=== PATIENT | male | born 1940 | race Caucasian/White ===

== ENCOUNTER 2023-07-01 09:31 | Outpatient (OUT) | payer MEDICARE, SELFPAY ==
--- NOTE | 2023-07-01 | XR_ITS ---
[address] [address] Patient Name: JUAN ZELAYA MRN: [id number] date: 1940 Sex: M Assigned Patient Location: [facility] Current Patient Location: [facility] Accession/Order Number: [id number] Exam Date: 07/01/2023 09:39 Report Date: 07/01/2023 11:45 At the request of: LELAND RICHARDSON Procedure: XR ankle RT min 3V PROCEDURE: XR ankle RT min 3V, XR foot RT min 3V COMPARISON: 06/18/2022. HISTORY: RIGHT ANKLE PAIN FINDINGS: BONES:No acute fracture or dislocation. Stable talus arthroplasty. Stable replacement of the tibial plafond and. Single cannulated lag screw through the medial malleolus. No acute fracture, dislocation or mechanical failure. Underlying degenerative changes. Enthesopathic spurring plantar calcaneus. 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 No visible soft tissue swelling. EFFUSION:None visible. OTHER: Negative. XR/XR ankle RT min 3V IMPRESSION: Stable postsurgical and degenerative changes Electronically authenticated by: JAG CANTOR Date: 07/01/2023 11:45
--- NOTE | 2023-07-01 | XR_ITS ---
[address] [address] Patient Name: JUAN ZELAYA MRN: [id number] date: 1940 Sex: M Assigned Patient Location: [facility] Current Patient Location: [facility] Accession/Order Number: [id number] Exam Date: 07/01/2023 09:39 Report Date: 07/01/2023 11:45 At the request of: LELAND RICHARDSON Procedure: XR foot RT min 3V PROCEDURE: XR ankle RT min 3V, XR foot RT min 3V COMPARISON: 06/18/2022. HISTORY: RIGHT ANKLE PAIN FINDINGS: BONES:No acute fracture or dislocation. Stable talus arthroplasty. Stable replacement of the tibial plafond and. Single cannulated lag screw through the medial malleolus. No acute fracture, dislocation or mechanical failure. Underlying degenerative changes. Enthesopathic spurring plantar calcaneus. 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 No visible soft tissue swelling. EFFUSION:None visible. OTHER: Negative. XR/XR foot RT min 3V IMPRESSION: Stable postsurgical and degenerative changes Electronically authenticated by: JAG CANTOR Date: 07/01/2023 11:45
== END 2023-07-01 09:32 | disposition home or self-care (01) ==
PROVIDERS: Visit Provider Podiatrist Foot & Ankle Surgery
DX: M25.571 Pain in right ankle and joints of right foot (principal)
CPT/HCPCS: 73610; 73630

== ENCOUNTER 2023-12-10 08:45 | Outpatient (OUT) | payer MEDICARE, SELFPAY ==
--- NOTE | 2023-12-10 09:45 | P.GSHP_ITS ---
History of Present Illness History of Present Illness Chief complaint: giuseppeertoe right 4th and 5th Narrative: Patient presents for preadmission testing. Please see HPI from Dr. Baxter dated 11/24/2023. Review of Systems ROS Narrative Please see ROS from Dr. Baxter dated 11/24/2023. [facility] Medical History (Updated 12/10/23 @ 09:48 by Alexandria Pineda NP) Hallux rigidus ?M20.20 - Hallux rigidus, unspecified foot (ICD-10) Other specified disorders of bone, ankle and foot ?M89.8X7 - Other specified disorders of bone, ankle and foot (ICD-10) Acquired hammer toe ?M20.40 - Other hammer toe(s) (acquired), unspecified foot (ICD-10) Corns and callosities ?L84 - Corns and callosities (ICD-10) Dyspnea on exertion ?R06.09 - Other forms of dyspnea (ICD-10) COVID-19 ?U07.1 - COVID-19 (ICD-10) Environmental allergies ?Z91.09 - Other allergy status, other than to drugs and biological substances (ICD-10) Bronchospasm ?J98.01 - Acute bronchospasm (ICD-10) Heartburn ?R12 - Heartburn (ICD-10) Hypertension ?I10 - Essential (primary) hypertension (ICD-10) Hydrocele ?N43.3 - Hydrocele, unspecified (ICD-10) Surgical History (Updated 12/10/23 @ 09:48 by Alexandria Pineda NP) History of hydrocelectomy ?Z98.890 - Other specified postprocedural states (ICD-10) History of colonoscopy ?Z98.890 - Other specified postprocedural states (ICD-10) History of appendectomy ?Z90.49 - Acquired absence of other specified parts of digestive tract (ICD- 10) History of repair of rotator cuff ?Z98.890 - Other specified postprocedural states (ICD-10) History of arthroplasty of knee ?Z96.659 - Presence of unspecified artificial knee joint (ICD-10) History of ankle surgery ?Z98.890 - Other specified postprocedural states (ICD-10) Family History (Updated 12/10/23 @ 09:42 by Alexandria Pineda, DESIGN EDITOR) Other Family history of colon cancer Family history of diabetes mellitus Family history of heart disease Family history of renal failure Social History (Updated 12/10/23 @ 09:09 by Alexandria Pineda NP) Within the past year, how often did you have a drink containing alcohol: 4 or more times a week Within the past year, how many standard drinks containing alcohol did you have on a typical day: 1 or 2 Total score: 0 Score interpretation: A score less than 4 is consistent with normal alcohol consumption. Smoking status: Former smoker Non-prescribed substance use: denies use Highest level of school completed/degree received: high school graduate Meds Home Medications and Allergies Home Medications ?Medication ?Instructions ?Recorded ?Confirmed ?Type albuterol sulfate 90 mcg/actuation 2 inh inhalation Q6H PRN shortness 12/10/23 12/10/23 History aerosol inhaler of breath or wheezing coenzyme Q10 30 mg capsule (Co 30 mg PO DAILY 12/10/23 12/10/23 History Q-10) meloxicam 15 mg tablet 15 mg PO DAILY PRN pain 12/10/23 12/10/23 History simvastatin 20 mg tablet 20 mg PO DAILY 12/10/23 12/10/23 History turmeric 400 mg capsule mg PO 12/10/23 History Allergies Allergy/AdvReac Type Severity Reaction Status Date / Time Sulfa (Sulfonamide Allergy Confusion Verified 12/10/23 09:06 Antibiotics) Exam Narrative Exam Narrative: Constitutional: Very pleasant, appears much younger than stated age, awake, alert, comfortable, well-appearing, nontoxic, interactive, vital signs as charted Head: Normocephalic, atraumatic Neck: Supple, normal appearance, normal range of motion, no meningeal signs, no lymphadenopathy Respiratory: No respiratory distress, breath sounds clear Cardiovascular: Regular rate and rhythm, strong and regular heart tones Skin: No rashes or induration, no lesions, only visible skin inspected Neuro: No neurological deficits, normal sensation Psychiatric: Oriented ?3, normal affect Assessment and Plan Assessment and Plan (1) Corns and callosities: (2) Acquired hammer toe: (3) Other specified disorders of bone, ankle and foot: (4) Hallux rigidus: Plan Right 5th hammertoe correction with ostectomy of 4th and 5th toes scheduled with Dr. Baxter 12/24/2023.
== END 2023-12-10 08:46 | disposition home or self-care (01) ==
PROVIDERS: PCP Internal Medicine Nephrology; Visit Provider Podiatrist Foot & Ankle Surgery
DX: Z01.818 Encounter for other preprocedural examination (principal); M20.41 Other hammer toe(s) (acquired), right foot; M89.8X7 Other specified disorders of bone, ankle and foot
CPT/HCPCS: G0463

== ENCOUNTER 2023-12-24 06:29 | Day surgery (SDC) | payer MEDICARE, SELFPAY ==
[2023-12-10 09:42] VITALS: BP 142/88; PULSE 67; TEMP 36.3; O2SAT 97; BMI 31.4
[2023-12-24] VITALS (11 sets, daily range): BP systolic 130–176; BP diastolic 79–99; PULSE 59–82; TEMP 36.2–36.3; O2SAT 67–98
--- OUTSIDE RECORDS SUMMARY | 2023-12-24 06:31 | XMS_ITS | CCD ---
Author Organization [facility] Care Team Providers Care Patch Washer Name Role Phone Rebekah Benítez Primary Care Provider LELAND RICHARDSON Admitting Unavailable LELAND RICHARDSON Attending Unavailable NOHELIA, DR FREDI Rodrgiuez Consulting Unavailable LELAND RICHARDSON Consulting Unavailable LELAND RICHARDSON Admitting Unavailable LELAND RICHARDSON Attending Unavailable DEVAUGHN, DR JAG Ruiz Consulting Unavailable LELAND RICHARDSON Consulting Unavailable Jackelin FULLER, Rebekah Bauman Primary Care Provider Rebekah Benítez DO Primary Care Provider [phone] Jackelin FULLER, Rebekah Bauman Primary Care Provider Alphonso ROBB, Jaden Pierson Attending Unavailab le Jackelin DO, Rebekah Lr Primary Care Bharati Werner MD, Jaden Pierson Attending Unavailab le Jackelin DO, Rebekah Lr [facility] Care REBEKAH Ribeiro Primary Care Unavailable JACKELIN, REBEKAH Bauman Referring Unavailable JACKELIN, REBEKAH Bauman Referring Unavailable JACKELIN, REBEKAH Bauman Primary Care Unavailable JACKELINREBEKAH CRANDALL Referring Unavailable NHI BARTHOLOMEW Primary Care Unavailable FREDI MOE Referring Unavailable JACKELIN, REBEKAH Bauman Primary Care Unavailable FREDI MOE Attending Unavailable JACKELIN, REBEKAH Bauman Primary Care Unavailable FREDI MOE Attending Unavailable FREDI MOE Referring Unavailable FREDI MOE Attending Unavailable JACKELIN, REBEKAH Bauman Primary Care Unavailable FREDI MOE Referring Unavailable JACKELIN, REBEKAH Bauman Primary Care Unavailable JACKELIN, REBEKAH Bauman Referring Unavailable FREDI MOE Attending Unavailable JACKELIN, REBEKAH F Primary Care Unavailable FREDI MOE Referring Unavailable JACKELIN, REBEKAH Bauman Referring Unavailable JACKELIN, REBEKAH Bauman Primary Care Unavailable JACKELIN, REBEKAH F Primary Care Unavailable FREDI MOE Attending Unavailable FREDI MOE Referring Unavailable Allergies Allergy Classification Reported Allergen(s) Allergy Type Date of Onset Reaction(s) Facility (6 sources) Sulfonamides (Antibiotic) Propensity to adverse reactions to drug 01-06-20 13 Other (See Comments) [place] (1 source) Sulfonamides (Antibiotic) Drug allergy (disorder) [facility] (3 sources) Sulfonamides (Antibiotic) Propensity to adverse reactions to drug 01-06-20 13 [facility] (See Comments[facility] Sulfamethoxazole / Trimethoprim; Translations: [Bactrim] Drug Allergy [facility]ository Medications Current Medications Medication Drug Class(es) Dates Sig (Normalized) Sig (Original) lutein 2.5 mg / omega-3 acid ethyl esters ([facility]) 250 mg / zeaxanthin 0.5 mg oral capsule (9 sources) [place] 7-Wzfkfz-Znjcymfegv 250-2.5-0.5 MG CAPS Take by mouth daily. 0 Active meloxicam 15 mg oral tablet (1 source) Nonsteroidal Anti-inflammatory Drug take 1 tablet by mouth once daily meloxicam (MOBIC) 15 MG tablet Take 1 tablet by mouth daily 0 Active omeprazole 20 mg delayed release oral capsule (9 sources) Proton Pump Inhibitor take 1 capsule by mouth once daily omeprazole (PRILOSEC) 20 MG capsule Take 20 mg by mouth nightly. 0 Active simvastatin 20 mg oral tablet (9 sources) HMG-CoA Reductase Inhibitor simvastatin (ZOCOR) 20 MG tablet Take 1 tablet by mouth nightly Pt takes every other day. 0 Active Completed/Discontinued Medications Medication Drug Class(es) Dates Sig (Normalized) Sig (Original) technetium sestamibi (CARDIOLITE) injection 30 millicurie (1 source) Start: 08-20-2023 End: 08-20-2023 technetium sestamibi (CARDIOLITE) injection 30 millicurie Problems Active Problems Problem Classification Problem Date Documented Date Episodic/Chronic Acquired foot deformities (1 source) Varus deformity, not elsewhere classified, right ankle; Translations: [VARUS DEFORMITY NEC RIGHT ANKLE] Onset: 06-22-2022 Episodic Diabetes mellitus without complication (2 sources) Hyperglycemia, unspecified; Translations: [Hyperglycemia, unspecified] Onset: 11-30-2023 Episodic Disorders of lipid metabolism (2 sources) Hyperlipidemia, unspecified; Translations: [Hyperlipidemia, unspecified] Onset: 02-03-2023 Chronic Diverticulosis and diverticulitis (9 sources) Diverticulosis of sigmoid colon; Translations: [Diverticulosis of large intestine without perforation or abscess without bleeding] Onset: 12-14-2013 Chronic Osteoarthritis (4 sources) Primary osteoarthritis, right ankle and foot; Translations: [PRIMARY OSTEOARTHRITIS RT ANK FOOT] Onset: 06-18-2022 Chronic Past or Other Problems Problem Classification Problem Date Documented Da te Episodic/Chronic Acute bronchitis (3 sources) Acute bronchitis, unspecified; Translations: [Acute bronchitis, unspecified] Onset: 06-24-2023 Episodic Other connective tissue disease (1 source) Other specified soft tissue disorders; Translations: [Other specified soft tissue disorders] Onset: 08-19-2023 Episodic Other lower respiratory disease (1 source) Shortness of breath; Translations: [Shortness of breath] Onset: 08-19-2023 Episodic Other non-traumatic joint disorders (4 sources) Pain in right ankle and joints of right foot; Translations: [PAIN IN RIGHT ANKLE] Onset: 10-10-2021 Episodic Other screening for suspected conditions (not mental disorders or infectious disease) (8 sources) Patient encounter status; Translations: [Encounter for screening for malignant neoplasm of colon] Onset: 11-28-2013 Resolved: 06-28-2018 06-28-2018 Episodic Unclassified (3 sources) Patient encounter status; Translations: [Encounter for screening colonoscopy] Onset: 11-28-2013 Resolved: 06-28-2018 06-28-2018 Results Test Name Value Interpretation Reference Range Facility Hemoglobin A1Con 12-01-2023 Glucose [Mass/Vol] 114 mg/dL Normal [facility] Comment on above: Result Comment: The ADA and AACC recommend providing the estimated average glucose result to permit better patient understanding of their HBA1c result. Performed By: #### L IPR, GLYHGB #### [facility] [employer] [address] [place] [address] Assistant Sales Manager: Trev Esparza MD #### CP #### [facility] [address] [place] [address] Assistant Sales Manager: Jag Martinez MD HbA1c (Bld) [Mass fraction] 5.6 % Normal 4.0-6.0 [facility] Comment on above: Performed By: #### L IPR, GLYHGB #### [address] [address] Assistant Sales Manager: Trev Esparza MD #### CP #### [facility] [address] [place] [address] Dr. [place], [place] [phone] Assistant Sales Manager: Jag Martinez MD Lipid Profileon 12-01-2023 Cholesterol [Mass/Vol] 168 mg/dL Normal 0-199 [facility] Comment on above: Result Comment: Cholesterol Guidelines: <200 Desirable 200-240 Borderline >240 Undesirable Performed By: #### L IPR, GLYHGB #### [address] [address] Assistant Sales Manager: Trev Esparza MD #### CP #### [address] [place] [address] Assistant Sales Manager: Jag Martinez MD Cholesterol in HDL [Mass/Vol] 50 mg/dL Normal >40 [facility] Comment on above: Result Comment: HDL Guidelines: <40 Undesirable 40-59 Borderline >59 Desirable Performed By: #### L IPR, GLYHGB #### [address] [address] Assistant Sales Manager: Trev Esparza MD #### CP #### [address] [place], [place] [phone] Assistant Sales Manager: Jag Martinez MD Cholesterol in LDL [Mass/Vol] 101 mg/dL High 0-100 [facility] Comment on above: Result Comment: LDL Guidelines: <100 Desirable 100-129 Near to/above Desirable 130-159 Borderline >159 Undesirable Direct (measured) LDL and calculated LDL are not interchangeable tests. Performed By: #### L IPR, GLYHGB #### [address] [address] Assistant Sales Manager: Trev Esparza MD #### CP #### [facility] [address] [place] [address] Dr. [place], [place] [phone] Assistant Sales Manager: Jag Martinez MD Cholesterol in VLDL [Mass/Vol] 17 mg/dL Normal [facility] Comment on above: Performed By: #### L IPR, GLYHGB #### [facility] [address] [place] [address] Assistant Sales Manager: Trev Esparza MD #### CP #### [address] [place], [place] [phone] Assistant Sales Manager: Jag Martinez MD Cholesterol.total/Cho lesterol in HDL [Mass ratio] 3.0 {ratio} Normal [facility] Comment on above: Performed By: #### L IPR, GLYHGB #### [address] [address] Assistant Sales Manager: Trev Esparza MD #### CP #### [address] [place] [address] Assistant Sales Manager: Jag Martinez MD Triglyceride [Mass/Vol] 85 mg/dL Normal <150 [facility] Comment on above: Result Comment: Triglyceride Guidelines: <150 Desirable 150-199 Borderline 200-499 High >499 Very high Based on AHA Guidelines for fasting triglyceride, May 2012. Performed By: #### L IPR, GLYHGB #### [address] [place] [address] Assistant Sales Manager: Trev Esparza MD #### CP #### [address] [place], [place] [phone] Assistant Sales Manager: Jag Martinez MD Comp Metabolic Profon 2023 Albumin [Mass/Vol] 4.1 g/dL Normal 3.5-5.2 [facility] Comment on above: Performed By: #### L IPR, GLYHGB #### [address] [place] [address] Assistant Sales Manager: Trev Esparza MD #### CP #### [facility] [address] [place], [place] [phone] Assistant Sales Manager: Jag Martinez MD Albumin/Glob Ratio 1.6 Normal 1.0-2.5 [facility] Comment on above: Performed By: #### L IPR, GLYHGB #### [address] [place] [address] Assistant Sales Manager: Trev Esparza MD #### CP #### [address] [place], [place] [phone] Assistant Sales Manager: Jag Martinez MD Alkaline Phos 50 U/L Normal 40-129 [facility] Comment on above: Performed By: #### L IPR, GLYHGB #### [address] [address] Assistant Sales Manager: Trev Esparza MD #### CP #### [address] [place], [place] [phone] Assistant Sales Manager: Jag Martinez MD ALT [Catalytic activity/Vol] 20 U/L Normal 5-41 [facility] Comment on above: Performed By: #### L IPR, GLYHGB #### [address] [address] Assistant Sales Manager: Trev Esparza MD #### CP #### [address] [place], [place] [phone] Assistant Sales Manager: Jag Martinez MD Anion gap [Moles/Vol] 8 mmol/L Low 9-17 [facility] Comment on above: Performed By: #### L IPR, GLYHGB #### [address] [address] Assistant Sales Manager: Trev Esparza MD #### CP #### [address] [place], [place] [phone] Assistant Sales Manager: Jag Martinez MD AST [Catalytic activity/Vol] 20 U/L Normal <40 [facility] Comment on above: Performed By: #### L IPR, GLYHGB #### [facility] [address] [place] [address] Assistant Sales Manager: Trev Esparza MD #### CP #### [facility] [address] [place], [place] [phone] Assistant Sales Manager: Jag Martinez MD Bilirubin [Mass/Vol] 0.5 mg/dL Normal 0.3-1.2 [facility] Comment on above: Performed By: #### L IPR, GLYHGB #### [address] [address] Assistant Sales Manager: Trev Esparza MD #### CP #### [facility] [address] [place] [phone] Assistant Sales Manager: Jag Martinez MD BUN/CRE Ratio 23 High 9-20 [facility] Comment on above: Performed By: #### L IPR, GLYHGB #### [address] [address] Assistant Sales Manager: Trev Esparza MD #### CP #### [facility] [address] [place] [address] Dr. [place], [place] [phone] Assistant Sales Manager: Jag Martinez MD Calcium [Mass/Vol] 9.2 mg/dL Normal 8.6-10.4 [facility] Comment on above: Performed By: #### L IPR, GLYHGB #### [address] [address] Assistant Sales Manager: Trev Esparza MD #### CP #### [facility] [address] [place], [place] [phone] Assistant Sales Manager: Jag Martinez MD Chloride [Moles/Vol] 107 mmol/L Normal 98-107 [facility] Comment on above: Performed By: #### L IPR, GLYHGB #### [facility] [address] [place] [address] Assistant Sales Manager: Trev Esparza MD #### CP #### [facility] [address] [place], [place] [phone] Assistant Sales Manager: Jag Martinez MD CO2 [Moles/Vol] 26 mmol/L Normal 20-31 [facility] Comment on above: Performed By: #### L IPR, GLYHGB #### [address] [address] Assistant Sales Manager: Trev Esparza MD #### CP #### [facility] [address] [place], [place] [phone] Assistant Sales Manager: Jag Martinez MD Creatinine [Mass/Vol] 0.7 mg/dL Normal 0.7-1.2 [facility] Comment on above: Performed By: #### L IPR, GLYHGB #### [address] [address] Assistant Sales Manager: Trev Esparza MD #### CP #### [facility] [address] [place], [place] [phone] Assistant Sales Manager: Jag Martinez MD GFR/1.73 sq M.predicted among non-blacks MDRD (S/P/Bld) [Vol rate/Area] mL/min/{1.73_m2} Normal >60 [facility] Comment on above: Result Comment: These results are not intended for use in patients <18 years of age. eGFR results are calculated without a race factor using the 2020 CKD-EPI equation. Careful clinical correlation is recommended, particularly when comparing to results calculated using previous equations. The CKD-EPI equation is less accurate in patients with extremes of muscle mass, extra-renal metabolism of creatine, excessive creatine ingestion, or following therapy that affects renal tubular secretion. Performed By: #### L IPR, GLYHGB #### [address] [address] Assistant Sales Manager: Trev Esparza MD #### CP #### [facility] [address] [place], [place] [phone] Assistant Sales Manager: Jag Martinez MD Glucose [Mass/Vol] 89 mg/dL Normal 70-99 [facility] Comment on above: Performed By: #### L IPR, GLYHGB #### [address] [address] Assistant Sales Manager: Trev Esparza MD #### CP #### [facility] [address] [place] [phone] Assistant Sales Manager: Jag Martinez MD Potassium [Moles/Vol] 4.8 mmol/L Normal 3.7-5.3 [facility] Comment on above: Performed By: #### L IPR, GLYHGB #### [address] [address] Assistant Sales Manager: Trev Esparza MD #### CP #### [address] [place] [phone] Assistant Sales Manager: Jag Martinez MD Protein [Mass/Vol] 6.6 g/dL Normal 6.4-8.3 [facility] Comment on above: Performed By: #### L IPR, GLYHGB #### [address] [address] Assistant Sales Manager: Trev Esparza MD #### CP #### [facility] [address] [place] [address] Dr. [place] [phone] Assistant Sales Manager: Jag Martinez MD Sodium [Moles/Vol] 141 mmol/L Normal 135-144 [facility] Comment on above: Performed By: #### L IPR, GLYHGB #### [address] [address] Assistant Sales Manager: Trev Esparza MD #### CP #### [facility] [address] [place] [address] Assistant Sales Manager: Jag Martniez MD Urea nitrogen [Mass/Vol] 16 mg/dL Normal 04-22 [facility] Comment on above: Performed By: #### L IPR, GLYHGB #### [address] [place], [place] [phone] Assistant Sales Manager: Trev Esparza MD #### CP #### [facility] [address] [place] [address] Assistant Sales Manager: Jag Martinez MD XR CHEST (2 VW)on 06-24-2023 XR CHEST (2 VW) EXAMINATION: TWO XRAY VIEWS OF THE CHEST 06/24/2023 2:19 pm COMPARISON: 06/25/2015 HISTORY: ORDERING SYSTEM PROVIDED HISTORY: Acute bronchitis, unspecified organism FINDINGS: The lungs are without acute focal process. There is no effusion or pneumothorax. The cardiomediastinal silhouette is stable. The osseous structures are stable. IMPRESSION: No acute process. Interpreted by: Jordan Hdez MD Signed by: Jordan Hdez MD 06/24/23 Final result Normal [facility] Comp Metabolic Profon 2022 Albumin [Mass/Vol] 4.2 g/dL Normal 3.5-5.2 [facility] Comment on above: Performed By: #### L IPR, PSAS #### [address] [place] [address] Assistant Sales Manager: Trev Esparza MD #### CP #### [facility] [address] [place] [address] [address] [place] [address] Assistant Sales Manager: Jag Martinez MD Albumin/Glob Ratio 1.6 Normal 1.0-2.5 [facility] Comment on above: Performed By: #### L IPR, PSAS #### [facility] [address] [place], [place] [phone] Assistant Sales Manager: Trev Esparza MD #### CP #### [facility] [address] [place] [address] Assistant Sales Manager: Jag Martinez MD Alkaline Phos 54 U/L Normal 40-129 [facility] Comment on above: Performed By: #### L IPR, PSAS #### [address] [place] [address] Assistant Sales Manager: Trev Esparza MD #### CP #### [facility] [address] [place] [address] [place] [address] Assistant Sales Manager: Jag Martinez MD ALT [Catalytic activity/Vol] 26 U/L Normal 5-41 [facility] Comment on above: Performed By: #### L IPR, PSAS #### [address] [address] Assistant Sales Manager: Trev Esparza MD #### CP #### [address] [place] [address] Assistant Sales Manager: Jag Martinez MD Anion gap [Moles/Vol] 8 mmol/L Low 9-17 [facility] Comment on above: Performed By: #### L IPR, PSAS #### [address] [address] Assistant Sales Manager: Trev Esparza MD #### CP #### [address] [place], [place] 7174483 Assistant Sales Manager: Jag Martinez MD AST [Catalytic activity/Vol] 23 U/L Normal <40 [facility] Comment on above: Performed By: #### L IPR, PSAS #### [address] [address] Assistant Sales Manager: Trev Esparza MD #### CP #### [address] [place], [place] 1923383 Assistant Sales Manager: Jag Martinez MD Bilirubin [Mass/Vol] 0.4 mg/dL Normal 0.3-1.2 [facility] Comment on above: Performed By: #### L IPR, PSAS #### [facility] [address] [place] [address] Assistant Sales Manager: Trev Esparza MD #### CP #### [facility] [address] [place], [place] [phone] Assistant Sales Manager: Jag Martinez MD BUN/CRE Ratio 23 High 9-20 [facility] Comment on above: Performed By: #### L IPR, PSAS #### [address] [address] Assistant Sales Manager: Trev Esparza MD #### CP #### [facility] [address] [place] [address] Dr. [place] [phone] Assistant Sales Manager: Jag Martinez MD Calcium [Mass/Vol] 9.4 mg/dL Normal 8.6-10.4 [facility] Comment on above: Performed By: #### L IPR, PSAS #### [address] [address] Assistant Sales Manager: Trev Esparza MD #### CP #### [facility] [address] [place] [address] Dr. [place], [place] [phone] Assistant Sales Manager: Jag Martinez MD Chloride [Moles/Vol] 106 mmol/L Normal 98-107 [facility] Comment on above: Performed By: #### L IPR, PSAS #### [address] [address] Assistant Sales Manager: Trev Esparza MD #### CP #### [facility] [address] [place] [address] Dr. [place], [place] 7706583 Assistant Sales Manager: Jag Martinez MD CO2 [Moles/Vol] 27 mmol/L Normal 20-31 [facility] Comment on above: Performed By: #### L IPR, PSAS #### [address] [place] [address] Assistant Sales Manager: Trev Esparza MD #### CP #### [facility] [address] [place] [address] Dr. [place], [place] 7507583 Assistant Sales Manager: Jag Martinez MD Creatinine [Mass/Vol] 0.8 mg/dL Normal 0.7-1.2 [facility] Comment on above: Performed By: #### L IPR, PSAS #### [address] [address] Assistant Sales Manager: Trev Esparza MD #### CP #### [address] [place] [address] Assistant Sales Manager: Jag Martinez MD GFR/1.73 sq M.predicted among non-blacks MDRD (S/P/Bld) [Vol rate/Area] mL/min/{1.73_m2} Normal >60 [facility] Comment on above: Result Comment: These results are not intended for use in patients <18 years of age. eGFR results are calculated without a race factor using the 2020 CKD-EPI equation. Careful clinical correlation is recommended, particularly when comparing to results calculated using previous equations. The CKD-EPI equation is less accurate in patients with extremes of muscle mass, extra-renal metabolism of creatine, excessive creatine ingestion, or following therapy that affects renal tubular secretion. Performed By: #### L IPR, PSAS #### [facility] [address] [place] [address] Assistant Sales Manager: Trev Esparza MD #### CP #### [facility] [address] [place] [address] [address] [place] [address] Assistant Sales Manager: Jag Martinez MD Glucose [Mass/Vol] 106 mg/dL High 70-99 [facility] Comment on above: Performed By: #### L IPR, PSAS #### [address] [address] Assistant Sales Manager: Trev Esparza MD #### CP #### [facility] [address] [place], [place] [phone] Assistant Sales Manager: Jag Martinez MD Potassium [Moles/Vol] 4.6 mmol/L Normal 3.7-5.3 [facility] Comment on above: Performed By: #### L IPR, PSAS #### [address] [address] Assistant Sales Manager: Trev Esparza MD #### CP #### [facility] [address] [place], [place] 9553983 Assistant Sales Manager: Jag Martinez MD Protein [Mass/Vol] 6.8 g/dL Normal 6.4-8.3 [facility] Comment on above: Performed By: #### L IPR, PSAS #### [address] [address] Assistant Sales Manager: Trev Esparza MD #### CP #### [address] [place], [place] 9023283 Assistant Sales Manager: Jag Martinez MD Sodium [Moles/Vol] 141 mmol/L Normal 135-144 [facility] Comment on above: Performed By: #### L IPR, PSAS #### [address] [address] Assistant Sales Manager: Trev Esparza MD #### CP #### [facility] [address] [place] [address] Dr. [place], [place] [phone] Assistant Sales Manager: Jag Martinez MD Urea nitrogen [Mass/Vol] 18 mg/dL Normal 8-23 [facility] Comment on above: Performed By: #### L IPR, PSAS #### [address] [address] Assistant Sales Manager: Trev Esparza MD #### CP #### [facility] [address] [place] [address] Dr. [place], [place] 1669683 Assistant Sales Manager: Jag Martinez MD Lipid Profileon 06-15-2023 Cholesterol [Mass/Vol] 154 mg/dL Normal 0-199 [facility] Comment on above: Result Comment: Cholesterol Guidelines: <200 Desirable 200-240 Borderline >240 Undesirable Performed By: #### L IPR, PSAS #### [address] [address] Assistant Sales Manager: Trev Esparza MD #### CP #### [facility] [address] [place] [address] Dr. [place], [place] [phone] Assistant Sales Manager: Jag Martinez MD Cholesterol in HDL [Mass/Vol] 48 mg/dL Normal >40 [facility] Comment on above: Result Comment: HDL Guidelines: <40 Undesirable 40-59 Borderline >59 Desirable Performed By: #### L IPR, PSAS #### [address] [address] Assistant Sales Manager: Trev Esparza MD #### CP #### [address] [place] [address] Assistant Sales Manager: Jag Martinez MD Cholesterol in LDL [Mass/Vol] 87 mg/dL Normal 0-100 [facility] Comment on above: Result Comment: LDL Guidelines: <100 Desirable 100-129 Near to/above Desirable 130-159 Borderline >159 Undesirable Direct (measured) LDL and calculated LDL are not interchangeable tests. Performed By: #### L IPR, PSAS #### [facility] [address] [place] [id number] Assistant Sales Manager: Trev Esparza MD #### CP #### [address] [place] [address] Assistant Sales Manager: Jag Martinez MD Cholesterol in VLDL [Mass/Vol] 19 mg/dL Normal [facility] Comment on above: Performed By: #### L IPR, PSAS #### [address] [address] Assistant Sales Manager: Trev Esparza MD #### CP #### [facility] [address] [place] [address] Assistant Sales Manager: Jag Martinez MD Cholesterol.total/Cho lesterol in HDL [Mass ratio] 3.0 {ratio} Normal [facility] Comment on above: Performed By: #### L IPR, PSAS #### [address] [place] [address] Assistant Sales Manager: Trev Esparza MD #### CP #### [facility] [address] [place] [address] Assistant Sales Manager: Jag Martinez MD Triglyceride [Mass/Vol] 96 mg/dL Normal 0-149 [facility] Comment on above: Result Comment: Triglyceride Guidelines: <150 Desirable 150-199 Borderline 200-499 High >499 Very high Based on AHA Guidelines for fasting triglyceride, May 2012. Performed By: #### L IPR, PSAS #### [address] [address] Assistant Sales Manager: Trev Esparza MD #### CP #### [facility] [address] [place] [address] [address] [place] [address] Assistant Sales Manager: Jag Martinez MD PSA, Screeningon 06-15-2023 Prostatic Spec. Ag 3.71 ng/mL Normal <4.1 [facility] Comment on above: Result Comment: The Nikhil ECLIA assay is used. Results obtained with different assay methods cannot be used interchangeably. Performed By: #### L IPR, PSAS #### [address] [place] [address] Assistant Sales Manager: Trev Esparza MD #### CP #### [facility] [address] [place] [address] Assistant Sales Manager: Jag Martinez MD Lipid Profileon 02-04-2023 Cholesterol [Mass/Vol] 153 mg/dL Normal <200 [facility] Comment on above: Result Comment: Cholesterol Guidelines: <200 Desirable 200-240 Borderline >240 Undesirable Performed By: #### C P #### [address] [place] [address] Assistant Sales Manager: Jag Martinez MD #### LIPR #### [address] [id number] Assistant Sales Manager: Trev Esparza MD Cholesterol in HDL [Mass/Vol] 50 mg/dL Normal >40 [facility] Comment on above: Result Comment: HDL Guidelines: <40 Undesirable 40-59 Borderline >59 Desirable Performed By: #### C P #### [address] [place] [id number] ( Assistant Sales Manager: Jag Martinez MD #### LIPR #### [address] [address] Assistant Sales Manager: Trev Esparza MD Cholesterol in LDL [Mass/Vol] 89 mg/dL Normal 0-130 [facility] Comment on above: Result Comment: LDL Guidelines: <100 Desirable 100-129 Near to/above Desirable 130-159 Borderline >159 Undesirable Direct (measured) LDL and calculated LDL are not interchangeable tests. Performed By: #### C P #### [address] [place], [id number] Assistant Sales Manager: Jag Martinez MD #### LIPR #### [address] [address] Assistant Sales Manager: Trev Esparza MD Cholesterol.total/Cho lesterol in HDL [Mass ratio] 3.1 {ratio} Normal <5 [facility] Comment on above: Performed By: #### C P #### [address] [place] [id number] Assistant Sales Manager: Jag Martinez MD #### LIPR #### [address] [place] [address] Assistant Sales Manager: Trev Esparza MD Triglyceride [Mass/Vol] 70 mg/dL Normal <150 [facility] Comment on above: Result Comment: Triglyceride Guidelines: <150 Desirable 150-199 Borderline 200-499 High >499 Very high Based on AHA Guidelines for fasting triglyceride, May 2012. Performed By: #### C P #### [facility] [address] [place] [address] Assistant Sales Manager: Jag Martinez MD #### LIPR #### [address] [address] Assistant Sales Manager: Trev Esparza MD Comp Metabolic Profon 2022 Albumin [Mass/Vol] 3.9 g/dL Normal 3.5-5.2 [facility] Comment on above: Performed By: #### C P #### [facility] [address] [place] [address] [place] [address] Assistant Sales Manager: Jag Martinez MD #### LIPR #### [address] [address] Assistant Sales Manager: Trev Esparza MD Albumin/Glob Ratio 1.4 Normal 1.0-2.5 [facility] Comment on above: Performed By: #### C P #### [facility] [address] [place] [address] [place] [address] Assistant Sales Manager: Jag Martinez MD #### LIPR #### [address] [address] Assistant Sales Manager: Trev Esparza MD Alkaline Phos 52 U/L Normal 40-129 [facility] Comment on above: Performed By: #### C P #### [facility] [address] [place] [address] [place] [address] Assistant Sales Manager: Jag Martinez MD #### LIPR #### [address] [address] Assistant Sales Manager: Trev Esparza MD ALT [Catalytic activity/Vol] 23 U/L Normal 5-41 [facility] Comment on above: Performed By: #### C P #### [facility] [address] [place], [place] [phone] Assistant Sales Manager: Jag Martinez MD #### LIPR #### [address] [address] Assistant Sales Manager: Trev Esparza MD Anion gap [Moles/Vol] 6 mmol/L Low 9-17 [facility] Comment on above: Performed By: #### C P #### [facility] [address] [place], [place] [phone] Assistant Sales Manager: Jag Martinez MD #### LIPR #### [address] [address] Assistant Sales Manager: Trev Esparza MD AST [Catalytic activity/Vol] 23 U/L Normal <40 [facility] Comment on above: Performed By: #### C P #### [facility] [address] [place], [place] [phone] Assistant Sales Manager: Jag Martinez MD #### LIPR #### [address] [address] Assistant Sales Manager: Trev Esparza MD Bilirubin [Mass/Vol] 0.6 mg/dL Normal 0.3-1.2 [facility] Comment on above: Performed By: #### C P #### [facility] [address] [place], [place] [phone] Assistant Sales Manager: Jag Martinez MD #### LIPR #### [address] [address] Assistant Sales Manager: Trev Esparza MD BUN/CRE Ratio 22 High 9-20 [facility] Comment on above: Performed By: #### C P #### [facility] [address] [place], [place] [phone] Assistant Sales Manager: Jag Martinez MD #### LIPR #### [address] [place] [address] Assistant Sales Manager: Trev Esparza MD Calcium [Mass/Vol] 9.0 mg/dL Normal 8.6-10.4 [facility] Comment on above: Performed By: #### C P #### [facility] [address] [place], [place] [phone] Assistant Sales Manager: Jag Martinez MD #### LIPR #### [address] [address] Assistant Sales Manager: Trev Esparza MD Chloride [Moles/Vol] 105 mmol/L Normal 98-107 [facility] Comment on above: Performed By: #### C P #### [facility] [address] [place] [address] [place] [address] Assistant Sales Manager: Jag Martinez MD #### LIPR #### [address] [address] Assistant Sales Manager: Trev Esparza MD CO2 [Moles/Vol] 27 mmol/L Normal 20-31 [facility] Comment on above: Performed By: #### C P #### [facility] [address] [place] [address] Assistant Sales Manager: Jag Martinez MD #### LIPR #### [address] [address] Assistant Sales Manager: Trev Esparza MD Creatinine [Mass/Vol] 0.76 mg/dL Normal 0.70-1.20 [facility] Comment on above: Performed By: #### C P #### [facility] [address] [place] [address] Dr. [place], [place] [phone] Assistant Sales Manager: Jag Martinez MD #### LIPR #### [facility] [address] [place] [address] Assistant Sales Manager: Trev Esparza MD GFR/1.73 sq M.predicted among non-blacks MDRD (S/P/Bld) [Vol rate/Area] mL/min/{1.73_m2} Normal >60 [facility] Comment on above: Result Comment: These results are not intended for use in patients <18 years of age. eGFR results are calculated without a race factor using the 2020 CKD-EPI equation. Careful clinical correlation is recommended, particularly when comparing to results calculated using previous equations. The CKD-EPI equation is less accurate in patients with extremes of muscle mass, extra-renal metabolism of creatine, excessive creatine ingestion, or following therapy that affects renal tubular secretion. Performed By: #### C P #### [address] [place], [place] [phone] Assistant Sales Manager: Jag Martinez MD #### LIPR #### [address] [address] Assistant Sales Manager: Trev Esparza MD Glucose [Mass/Vol] 90 mg/dL Normal 70-99 [facility] Comment on above: Performed By: #### C P #### [address] [place]ás[place] [phone] Assistant Sales Manager: Jag Martinez MD #### LIPR #### [address] [place] [address] Assistant Sales Manager: Trev Esparza MD Potassium [Moles/Vol] 4.6 mmol/L Normal 3.7-5.3 [facility] Comment on above: Performed By: #### C P #### [facility] [address] [place] [address] Dr. [place], [place] [phone] Assistant Sales Manager: Jag Martinez MD #### LIPR #### [address] [phone] Assistant Sales Manager: Trev Esparza MD Protein [Mass/Vol] 6.6 g/dL Normal 6.4-8.3 [facility] Comment on above: Performed By: #### C P #### [facility] [address] [place], [place] [phone] Assistant Sales Manager: Jag Martinez MD #### LIPR #### [address] [phone] Assistant Sales Manager: Trev Esparza MD Sodium [Moles/Vol] 138 mmol/L Normal 135-144 [facility] Comment on above: Performed By: #### C P #### [facility] [address] [place] [address] Dr. [place], [place] [phone] Assistant Sales Manager: Jag Martniez MD #### LIPR #### [address] [place] [address] Assistant Sales Manager: Trev Esparza MD Urea nitrogen [Mass/Vol] 17 mg/dL Normal 8-23 [facility] Comment on above: Performed By: #### C P #### [facility] [address] [place] [address] Dr. [place], [place] [phone] Assistant Sales Manager: Jag Martinez MD #### LIPR #### [address] [place] [address] Assistant Sales Manager: Trev Esparza MD Comprehensive Metabolic Pane [facility] 02-03-2023 Albumin [Mass/Vol] 3.9 g/dL 3.5 - 5.2 g/dL [facility] Albumin/Globulin [Mass ratio] 1.4 {ratio} 1.0 - 2.5 [facility] ALP [Catalytic activity/Vol] 52 U/L 40 - 129 U/L [facility] ALT [Catalytic activity/Vol] 23 U/L 5 - 41 U/L [facility] Anion gap [Moles/Vol] 6 mmol/L Low 9 - 17 mmol/L [facility] AST [Catalytic activity/Vol] 23 U/L NINF - 40 U/L [facility] Bilirubin [Mass/Vol] 0.6 mg/dL 0.3 - 1 .2 mg/dL [facility] Calcium [Mass/Vol] 9.0 mg/dL 8.6 - 10. 4 mg/dL [facility] Chloride [Moles/Vol] 105 mmol/L 98 - 10 7 mmol/L [facility] CO2 [Moles/Vol] 27 mmol/L 20 - 31 mmol/L [facility] Creatinine [Mass/Vol] 0.76 mg/dL 0.70 - 1.20 mg/dL [facility] GFR/1.73 sq M.predicted MDRD (S/P/Bld) [Vol rate/Area] - PINF [facility] Comment on above: These results are not intended for use in patients <18 years of age. eGFR results are calculated without a race factor using the 2020 CKD-EPI equation. Careful clinical correlation is recommended, particularly when comparing to results calculated using previous equations. The CKD-EPI equation is less accurate in patients with extremes of muscle mass, extra-renal metabolism of creatine, excessive creatine ingestion, or following therapy that affects renal tubular secretion. Glucose [Mass/Vol] 90 mg/dL 70 - 99 mg/dL [facility] Interpretation and review of laboratory results Abnormal [facility] Potassium [Moles/Vol] 4.6 mmol/L 3.7 - 5.3 mmol/L [facility] Protein [Mass/Vol] 6.6 g/dL 6.4 - 8.3 g/dL [facility] Sodium [Moles/Vol] 138 mmol/L 135 - 144 mmol/L [facility] Urea nitrogen [Mass/Vol] 17 mg/dL 8 - 23 mg/dL [facility] Urea nitrogen/Creatinine [Mass ratio] 22 mg/mg High 9 - 20 [facility] Comprehensive Metabolic Pane aletha 09-09-2022 Albumin [Mass/Vol] 4.1 g/dL 3.5 - 5.2 g/dL [facility] Albumin/Globulin [Mass ratio] 1.6 {ratio} 1.0 - 2.5 [facility] ALP (Bld) [Catalytic activity/Vol] 52 U/L 40 - 129 U/L [facility] ALT [Catalytic activity/Vol] 29 U/L 5 - 41 U/L [facility] Anion gap [Moles/Vol] 7 mmol/L Low 9 - 17 mmol/L [facility] AST [Catalytic activity/Vol] 25 U/L NINF - 40 U/L [facility] Bilirubin [Mass/Vol] 0.6 mg/dL 0.3 - 1 .2 mg/dL [facility] Calcium [Mass/Vol] 9.5 mg/dL 8.6 - 10. 4 mg/dL [facility] Chloride [Moles/Vol] 104 mmol/L 98 - 10 7 mmol/L [facility] CO2 [Moles/Vol] 27 mmol/L 20 - 31 mmol/L [facility] Creatinine [Mass/Vol] 0.73 mg/dL 0.70 - 1.20 mg/dL [facility] GFR/1.73 sq M.predicted MDRD (S/P/Bld) [Vol rate/Area] - PINF [facility] Comment on above: Effective Jun 02, 2022 These results are not intended for use in patients <18 years of age. eGFR results are calculated without a race factor using the 2020 CKD-EPI equation. Careful clinical correlation is recommended, particularly when comparing to results calculated using previous equations. The CKD-EPI equation is less accurate in patients with extremes of muscle mass, extra-renal metabolism of creatine, excessive creatine ingestion, or following therapy that affects renal tubular secretion. Glucose [Mass/Vol] 94 mg/dL 70 - 99 mg/dL [facility] Interpretation and review of laboratory results Abnormal [facility] Potassium [Moles/Vol] 4.5 mmol/L 3.7 - 5.3 mmol/L [facility] Protein [Mass/Vol] 6.7 g/dL 6.4 - 8.3 g/dL [facility] Sodium [Moles/Vol] 138 mmol/L 135 - 144 mmol/L [facility] Urea nitrogen (BldV) [Mass/Vol] 16 mg/dL 8 - 23 mg/dL [facility] Urea nitrogen/Creatinine (Bld) [Mass ratio] 22 High 9 - 20 [facility] Lipid Panelon 09-09-2022 Cholesterol [Mass/Vol] 136 mg/dL NINF - 200 mg/dL [facility] Comment on above: Cholesterol Guidelines: <200 Desirable 200-240 Borderline >240 Undesirable Cholesterol in HDL [Mass/Vol] 48 mg/dL 40 - PINF mg/dL [facility] Comment on above: HDL Guidelines: <40 Undesirable 40-59 Borderline >59 Desirable Cholesterol in LDL [Mass/Vol] 65 mg/dL 0 - 130 mg/dL [facility] Comment on above: LDL Guidelines: <100 Desirable 100-129 Near to/above Desirable 130-159 Borderline >159 Undesirable Direct (measured) LDL and calculated LDL are not interchangeable tests. Cholesterol.total/Cho lesterol in HDL [Mass ratio] 2.8 {ratio} NINF - 5 [facility] Triglyceride [Mass/Vol] 113 mg/dL NINF - 150 mg/dL [facility] Comment on above: Triglyceride Guidelines: <150 Desirable 150-199 Borderline 200-499 High >499 Very high Based on AHA Guidelines for fasting triglyceride, May 2012. [facility] Comprehensive Metabolic Pane aletha 04-03-2022 Albumin [Mass/Vol] 4.2 g/dL 3.5 - 5.2 g/dL [facility] Albumin/Globulin [Mass ratio] 1.8 {ratio} 1 - 2.5 [facility] ALP (Bld) [Catalytic activity/Vol] 50 U/L 40 - 129 U/L [facility] ALT [Catalytic activity/Vol] 25 U/L 5 - 41 U/L [facility] Anion gap [Moles/Vol] 8 mmol/L Low 9 - 17 mmol/L [facility] AST [Catalytic activity/Vol] 24 U/L NINF - 40 U/L [facility] Bilirubin [Mass/Vol] 0.55 mg/dL 0.3 - 1 .2 mg/dL [facility] Calcium [Mass/Vol] 9.5 mg/dL 8.6 - 10. 4 mg/dL [facility] Chloride [Moles/Vol] 105 mmol/L 98 - 10 7 mmol/L [facility] CO2 [Moles/Vol] 27 mmol/L 20 - 31 mmol/L [facility] Creatinine [Mass/Vol] 0.65 mg/dL Low 0.7 - 1.2 mg/dL [facility] Free PSA/Total PSA [Mass fraction] 6.5 g/dL 6.4 - 8.3 g/dL [facility] GFR >60 60 - PI NF mL/min [facility] GFR Non- >60 60 - PINF mL/min [facility] Glucose [Mass/Vol] 101 mg/dL High 70 - 99 mg/dL [facility] Interpretation and review of laboratory results Abnormal [facility] Potassium [Moles/Vol] 4.7 mmol/L 3.7 - 5.3 mmol/L [facility] Sodium [Moles/Vol] 140 mmol/L 135 - 144 mmol/L [facility] Urea nitrogen (BldV) [Mass/Vol] 13 mg/dL 8 - 23 mg/dL [facility] Urea nitrogen/Creatinine (Bld) [Mass ratio] 20 9 - 20 [facility] Laboratory - Chemistry and C hemistry - challengeon 04-03-2022 GFR/1.73 sq M.predicted MDRD (S/P/Bld) [Vol rate/Area] [facility] Comment on above: Average GFR for 70 o r more years old: 75 mL/min/1.73sq m Chronic Kidney Disease: <60 mL/min/1.73sq m Kidney failure: <15 mL/min/1.73sq m eGFR calculated using average adult body mass. Additional eGFR calculator available at: http://www.EyeLock.[employer]/multiple_crcl_2012.htm Stage 1: Some kidney damage normal GFR Stage 2: Mild kidney damage GFR 60-89 Stage 3: Moderate kidney damage GFR 30-59 Stage 4: Severe kidney damage GFR 15-29 Stage 5: Severe kidney damage GFR <15 ESRD - chronic treatment by dialysis or transplant Lipid, Fastingon 04-03-2022 Cholesterol [Mass/Vol] 138 mg/dL NINF - 200 mg/dL [facility] Comment on above: Cholesterol Guidelines: <200 Desirable 200-240 Borderline >240 Undesirable Cholesterol in HDL [Mass/Vol] 49 mg/dL 40 - PINF mg/dL [facility] Comment on above: HDL Guidelines: <40 Undesirable 40-59 Borderline >59 Desirable Cholesterol in LDL [Mass/Vol] 71 mg/dL 0 - 130 mg/dL [facility] Comment on above: LDL Guidelines: <100 Desirable 100-129 Near to/above Desirable 130-159 Borderline >159 Undesirable Direct (measured) LDL and calculated LDL are not interchangeable tests. Cholesterol.total/Cho lesterol in HDL [Mass ratio] 2.8 {ratio} NINF - 5 [facility] Triglyceride, Fasting 91 mg/dL NINF - 150 mg/dL [facility] Comment on above: Triglyceride Guidelines: <150 Desirable 150-199 Borderline 200-499 High >499 Very high Based on AHA Guidelines for fasting triglyceride, May 2012. [facility] Comprehensive Metabolic Pane lOrdered By: Rebekah Benítez on 06-03-2021 Albumin [Mass/Vol] 4 g/dL 3.5 - 5.2 g/dL [facility] [email or web address] Work Phone: Albumin/Globulin [Mass ratio] 1.5 {ratio} [facility] Phone: ALP (Bld) [Catalytic activity/Vol] 56 U/L 40 - 129 U/L [facility] Phone: ALT [Catalytic activity/Vol] 21 U/L 5 - 41 U/L [facility] Phone: Anion gap [Moles/Vol] 9 mmol/L 9 - 17 mmol/L [employer] Phone: AST [Catalytic activity/Vol] 21 U/L <40 [facility] Phone: Bilirubin [Mass/Vol] 0.52 mg/dL 0.3 - 1 .2 mg/dL [facility] Phone: Calcium [Mass/Vol] 9.4 mg/dL 8.6 - 10. 4 mg/dL [facility] Phone: Chloride [Moles/Vol] 104 mmol/L 98 - 10 7 mmol/L [facility] Phone: CO2 [Moles/Vol] 26 mmol/L 20 - 31 mmol/L [facility] Phone: Creatinine [Mass/Vol] 0.79 mg/dL 0.70 - 1.20 mg/dL [facility] Phone: Free PSA/Total PSA [Mass fraction] 6.6 g/dL 6.4 - 8.3 g/dL [facility] Phone: GFR >60 >60 mL/min [facility] Phone: GFR Non- >60 >60 mL/min [facility] Phone: Glucose [Mass/Vol] 102 mg/dL High 70 - 99 mg/dL [facility] [employer] Phone: Interpretation and review of laboratory results Abnormal [facility] Phone: Potassium [Moles/Vol] 4.9 mmol/L 3.7 - 5.3 mmol/L [facility] Phone: Sodium [Moles/Vol] 139 mmol/L 135 - 144 mmol/L [facility] Phone: Urea nitrogen (BldV) [Mass/Vol] 16 mg/dL 8 - 23 mg/dL [facility] Phone: Urea nitrogen/Creatinine (Bld) [Mass ratio] 20 [facility] Phone: [employer] Phone: Laboratory - Chemistry and C hemistry - challengeOrdered By: Rebekah Benítez on 06-03-2021 GFR/1.73 sq M.predicted MDRD (S/P/Bld) [Vol rate/Area] [facility] Phone: Comment on above: Average GFR for 70 o r more years old: 75 mL/min/1.73sq m Chronic Kidney Disease: <60 mL/min/1.73sq m Kidney failure: <15 mL/min/1.73sq m eGFR calculated using average adult body mass. Additional eGFR calculator available at: http://www.Lockr/multiple_crcl_2012.htm Stage 1: Some kidney damage normal GFR Stage 2: Mild kidney damage GFR 60-89 Stage 3: Moderate kidney damage GFR 30-59 Stage 4: Severe kidney damage GFR 15-29 Stage 5: Severe kidney damage GFR <15 ESRD - chronic treatment by dialysis or transplant Lipid PanelOrdered By: Rebekah Benítez on 06-03-2021 Cholesterol [Mass/Vol] 140 mg/dL <200 [employer] Phone: Comment on above: Cholesterol Guidelines: <200 Desirable 200-240 Borderline >240 Undesirable Cholesterol in HDL [Mass/Vol] 50 mg/dL >40 [employer] Phone: Comment on above: HDL Guidelines: <40 Undesirable 40-59 Borderline >59 Desirable Cholesterol in LDL [Mass/Vol] 74 mg/dL 0 - 130 mg/dL [employer] Phone: Comment on above: LDL Guidelines: <100 Desirable 100-129 Near to/above Desirable 130-159 Borderline >159 Undesirable Direct (measured) LDL and calculated LDL are not interchangeable tests. Cholesterol in VLDL [Mass/Vol] NOT REPORTED 1 - 30 mg/dL [employer] Phone: Cholesterol.total/Cho lesterol in HDL [Mass ratio] 2.8 {ratio} <5 [employer] Phone: Triglyceride [Mass/Vol] 79 mg/dL <150 [employer] Phone: Comment on above: Triglyceride Guidelines: <150 Desirable 150-199 Borderline 200-499 High >499 Very high Based on AHA Guidelines for fasting triglyceride, May 2012. [employer] Phone: Comprehensive Metabolic Pane aletha 08-20-2020 Albumin [Mass/Vol] 4.1 g/dL 3.5 - 5.2 g/dL [place], [place] Albumin/Globulin [Mass ratio] 1.7 {ratio} [place], [place] ALP [Catalytic activity/Vol] 50 U/L 40 - 129 U/L [place] ALT [Catalytic activity/Vol] 33 U/L 5 - 41 U/L [place] Anion gap [Moles/Vol] 9 mmol/L 9 - 17 mmol/L [place] AST [Catalytic activity/Vol] 27 U/L <40 [place], [place] Bilirubin Ql (U) 0.47 mg/dL 0.3 - 1.2 mg/dL [place] Bun/Cre Ratio 19 [place], [place] Calcium [Mass/Vol] 9.8 mg/dL 8.6 - 10. 4 mg/dL [place], [place] Chloride [Moles/Vol] 105 mmol/L 98 - 10 7 mmol/L [place] CO2 [Moles/Vol] 26 mmol/L 20 - 31 mmol/L [place] [place] Creatinine [Mass/Vol] 0.77 mg/dL 0.7 - 1.2 mg/dL [place] GFR >60 >60 mL/min [place] GFR Non- >60 >60 mL/min [place] Glucose [Mass/Vol] 96 mg/dL 70 - 99 mg/dL [place], [place] Potassium [Moles/Vol] 5.0 mmol/L 3.7 - 5.3 mmol/L [place] Protein [Mass/Vol] 6.5 g/dL 6.4 - 8.3 g/dL [place], [place] Sodium [Moles/Vol] 140 mmol/L 135 - 144 mmol/L [place] Urea nitrogen [Mass/Vol] 15 mg/dL 8 - 23 mg/dL [place] Hemoglobin A1Con 08-20-2020 Glucose [Mass/Vol] 117 mg/dL [place] Comment on above: The ADA and AACC rec ommend providing the estimated average glucose result to permit better patient understanding of their HBA1c result. HbA1c (Bld) [Mass fraction] 5.7 % 4 - 6 % [place] Lipid Panelon 08-20-2020 Cholesterol [Mass/Vol] 138 mg/dL <200 [place] Comment on above: Cholesterol Guidelines: <200 Desirable 200-240 Borderline >240 Undesirable Cholesterol in HDL [Mass/Vol] 55 mg/dL >40 [place] Comment on above: HDL Guidelines: <40 Undesirable 40-59 Borderline >59 Desirable Cholesterol in LDL [Mass/Vol] 67 mg/dL 0 - 130 mg/dL [place] Comment on above: LDL Guidelines: <100 Desirable 100-129 Near to/above Desirable 130-159 Borderline >159 Undesirable Direct (measured) LDL and calculated LDL are not interchangeable tests. Cholesterol in VLDL [Mass/Vol] NOT REPORTED 1 - 30 mg/dL [place] Cholesterol.total/Cho lesterol in HDL [Mass ratio] 2.5 {ratio} <5 [place] Triglyceride [Mass/Vol] 78 mg/dL <150 [place] Comment on above: Triglyceride Guidelines: <150 Desirable 150-199 Borderline 200-499 High >499 Very high Based on AHA Guidelines for fasting triglyceride, May 2012. Metabolic Panelon 08-20-2020 GFR/1.73 sq M predicted among non-blacks MDRD (S/P/Bld) [Vol rate/Area] [place] Comment on above: Stage 1: Some kidney damage normal GFR Stage 2: Mild kidney damage GFR 60-89 Stage 3: Moderate kidney damage GFR 30-59 Stage 4: Severe kidney damage GFR 15-29 Stage 5: Severe kidney damage GFR <15 ESRD - chronic treatment by dialysis or transplant Average GFR for 70 o r more years old: 75 mL/min/1.73sq m Chronic Kidney Disease: <60 mL/min/1.73sq m Kidney failure: <15 mL/min/1.73sq m eGFR calculated using average adult body mass. Additional eGFR calculator available at: http://www.Lockr/multiple_crcl_2012.htm Comprehensive Metabolic Pane lOrdered By: Rebekah Benítez on 08-15-2019 Albumin [Mass/Vol] 4.2 g/dL 3.5 - 5.2 g/dL [facility] Work Phone: Albumin/Globulin [Mass ratio] 1.7 {ratio} [facility] Phone: ALP [Catalytic activity/Vol] 49 U/L 40 - 129 U/L [facility] Phone: ALT [Catalytic activity/Vol] 33 U/L 5 - 41 U/L [facility] Phone: Anion gap [Moles/Vol] 11 mmol/L 9 - 17 mmol/L [facility] Phone: AST [Catalytic activity/Vol] 23 U/L <40 [facility] Phone: Bilirubin [Mass/Vol] 0.37 mg/dL 0.3 - 1 .2 mg/dL [facility] Phone: Bun/Cre Ratio 27 High [facility] [employer] Work Phone: Calcium [Mass/Vol] 9.7 mg/dL 8.6 - 10. 4 mg/dL [facility] Phone: Chloride [Moles/Vol] 97 mmol/L Low 98 - 10 7 mmol/L [facility] Phone: CO2 [Moles/Vol] 26 mmol/L 20 - 31 mmol/L [facility] Phone: Creatinine [Mass/Vol] 0.78 mg/dL 0.7 - 1.2 mg/dL [facility] Phone: GFR >60 >60 mL/min [facility] [employer] Phone: GFR Comment [facility] Phone: Comment on above: Average GFR for 70 o r more years old: 75 mL/min/1.73sq m Chronic Kidney Disease: <60 mL/min/1.73sq m Kidney failure: <15 mL/min/1.73sq m eGFR calculated using average adult body mass. Additional eGFR calculator available at: http://www.globalrph.com/multiple_crcl_2012.htm GFR Non- >60 >60 mL/min [employer] Phone: GFR Staging [facility] Phone: Comment on above: Stage 1: Some kidney damage normal GFR Stage 2: Mild kidney damage GFR 60-89 Stage 3: Moderate kidney damage GFR 30-59 Stage 4: Severe kidney damage GFR 15-29 Stage 5: Severe kidney damage GFR <15 ESRD - chronic treatment by dialysis or transplant Glucose [Mass/Vol] 85 mg/dL 70 - 99 mg/dL [employer] Phone: Interpretation and review of laboratory results Abnormal [facility] Phone: Potassium [Moles/Vol] 4.4 mmol/L 3.7 - 5.3 mmol/L [facility] Phone: Protein [Mass/Vol] 6.7 g/dL 6.4 - 8.3 g/dL [facility]: Sodium [Moles/Vol] 134 mmol/L Low 135 - 144 mmol/L [facility] Phone: Urea nitrogen [Mass/Vol] 21 mg/dL 8 - 23 mg/dL [facility] Phone: Lipid PanelOrdered By: Rebekah Benítez on 08-15-2019 Cholesterol [Mass/Vol] 146 mg/dL <200 [facility] Phone: Comment on above: Cholesterol Guidelines: <200 Desirable 200-240 Borderline >240 Undesirable Cholesterol in HDL [Mass/Vol] 67 mg/dL >40 [employer] Phone: Comment on above: HDL Guidelines: <40 Undesirable 40-59 Borderline >59 Desirable Cholesterol in LDL [Mass/Vol] 70 mg/dL 0 - 130 mg/dL [employer] Phone: Comment on above: LDL Guidelines: <100 Desirable 100-129 Near to/above Desirable 130-159 Borderline >159 Undesirable Direct (measured) LDL and calculated LDL are not interchangeable tests. Cholesterol.total/Cho lesterol in HDL [Mass ratio] 2.2 {ratio} <5 [facility] [employer] Phone: Triglyceride [Mass/Vol] 45 mg/dL <150 [facility] [employer] Phone: Comment on above: Triglyceride Guidelines: <150 Desirable 150-199 Borderline 200-499 High >499 Very high Based on AHA Guidelines for fasting triglyceride, May 2012. VLDL NOT REPORTED 1 - 30 mg/dL [facility] Work Phone: CBC Auto Differentialon 08-0 Basophils (Bld) [#/Vol] 10*3/uL [place] Basophils/100 WBC (Bld) 0 % 0 - 2 % [place] Differential Type NOT REPORTED [place] Eosinophils (Bld) [#/Vol] 0.20 10*3/uL [place] Eosinophils/100 WBC (Bld) 4 % 1 - 4 % [place] Erythrocyte distribution width (RBC) [Ratio] 12.6 % 11.8 - 14.4 % [place] Hematocrit (Bld) [Volume fraction] 44.7 % 40.7 - 50.3 % [place] Hemoglobin (Bld) [Mass/Vol] 14.4 g/dL 13 - 17 g/dL [place] Immature granulocytes (Bld) [#/Vol] 10*3/uL [place] Immature granulocytes (Bld) [#/Vol] 0 % 0 [place] Lymphocytes (Bld) [#/Vol] 2.13 10*3/uL [place] Lymphocytes/100 WBC (Bld) 38 % 24 - 43 % [place] MCH (RBC) [Entitic mass] 32.1 pg 25.2 - 33.5 pg [place] MCHC (RBC) [Mass/Vol] 32.2 g/dL 28.4 - 34.8 g/dL [place] MCV (RBC) [Entitic vol] 99.8 fL 82.6 - 102.9 fL [place] Monocytes (Bld) [#/Vol] 0.43 10*3/uL [place] Monocytes/100 WBC (Bld) 8 % 3 - 12 % [place] Platelet mean volume (Bld) [Entitic vol] 10.7 fL 8.1 - 13.5 fL [place] Platelets (Bld) [#/Vol] 199 10*3/uL [place] Platelets (Bld) [#/Vol] NOT REPORTED [place] RBC (Bld) [#/Vol] 4.48 10*6/uL 4.21 - 5.7 7 m/uL [place] RBC morphology finding Nom (Bld) NOT REPORTED [place] Segmented neutrophils/100 WBC (Bld) 50 % 36 - 65 % [place] Segs Absolute 2.83 [place] WBC (Bld) [#/Vol] 5.6 10*3/uL [place] WBC (Bld) [#/Vol] 0.0 10*3/uL 0.0 per 10 0 WBC [place] WBC Morphology NOT REPORTED [place] Hemoglobin A1Con 04-08-2019 Glucose [Mass/Vol] 114 mg/dL [place] Comment on above: The ADA and AACC rec ommend providing the estimated average glucose result to permit better patient understanding of their HBA1c result. HbA1c (Bld) [Mass fraction] 5.6 % 4.8 - 5.9 % [place] Encounters Encounter Date Encounter Type Care Provider Facility Start: 11-30-2023 End: 12-01-2023 ambulatory REBEKAH BENÍTEZ [facility] Start: 10-28-2023 End: 10-29-2023 ambulatory Jaden Werner MD Facility:[facility] Start: 10-14-2023 End: 10-15-2023 ambulatory Jaden Werner MD Facility:[facility] Start: 08-20-2023 End: 08-23-2023 [facility] Start: 08-20-2023 End: 08-22-2023 Subsequent hospital visit by physician Fredi Moe MD Work Phone: [facility] Comment on above: Arrived Start: 08-19-2023 End: 08-22-2023 ambulatory [facility]AH [facility] Start: 06-24-2023 End: 06-27-2023 ambulatory [facility]AH [facility] Start: 06-15-2023 End: 06-16-2023 ambulatory RE[facility]AH [facility]EN[facility] Start: 02-03-2023 End: 02-04-2023 ambulatory RE[facility]KAH [facility]EN[facility] Start: 02-03-2023 End: 02-03-2023 Subsequent hospital visit by physician Rebekah Benítez DO [facility] Phone: [facility] Start: 09-09-2022 End: 09-09-2022 Subsequent hospital visit by physician Rebekah Benítez DO Work Phone: [facility] Start: 06-18-2022 End: 06-19-2022 ambulatory [facility] Facility:H1 Start: 04-03-2022 End: 04-03-2022 Subsequent hospital visit by physician Rebekah Benítez DO Work Phone: [facility] Start: 10-10-2021 End: 10-11-2021 ambulatory [facility] Facility:H1 Start: 07-09-2021 End: 07-09-2021 [facility] Comment on above: Arrived Start: 06-03-2021 End: 06-03-2021 Subsequent hospital visit by physician Rebekah Benítez DO Work Phone: [facility] Start: 08-20-2020 End: 08-20-2020 Subsequent hospital visit by physician [facility] Start: 08-15-2019 End: 08-15-2019 Subsequent hospital visit by physician Rebekah Benítez DO Work Phone: [facility] Start: 04-08-2019 End: 04-08-2019 Subsequent hospital visit by physician [facility] Procedures Date Procedure Procedure Detail Performing Clinician Start: 08-20-2023 Myocardial spect mul tiple studies Fredi Moe MD Work Phone: Start: 02-03-2023 Comprehensive metabo lic panel Rebekah Benítez DO Work Phone: Start: 09-09-2022 Comprehensive metabo lic panel Rebekah Benítez DO Work Phone: Start: 09-09-2022 Lipid panel Rebekah Tapia sse DO Work Phone: Start: 04-03-2022 Comprehensive metabo lic panel Rebekah Benítez DO Work Phone: Start: 04-03-2022 Lipid panel Rebekah harper DO Work Phone: Start: 06-03-2021 Comprehensive metabo lic panel Rebekah Benítez DO Work Phone: Start: 06-03-2021 Lipid panel Rebekah harper DO Work Phone: Start: 08-20-2020 [object Object] Rebekah lange Comment on above: The Nikhil ECLIA as say is used. Results obtained with different assay methods cannot be used interchangeably. Start: 08-20-2020 Comprehensive metabo lic panel Rebekah Benítez Work Phone: Start: 08-20-2020 Hemoglobin glycosylated a1c Rebekah Benítez Work Phone: Start: 08-20-2020 Lipid panel Rebekah harper Work Phone: Start: 08-20-2020 PSA screening Rebekah lange Work Phone: Start: 08-15-2019 Comprehensive metabo lic panel Rebekah Benítez DO Work Phone: Start: 08-15-2019 Lipid panel Rebekah harper DO Work Phone: Start: 04-08-2019 Blood count complete auto&auto difrntl wbc Rebekah Benítez Work Phone: Start: 04-08-2019 Hemoglobin glycosylated a1c Rebekah Benítez Work Phone: Plan of Treatment Date Care Activity Detail Author Start: 06-15-2024 Lipid panel Lipids [facility] Start: 09-24-2023 End: 09-24-2023 Patient encounter procedure 09/24/2023 10:00 AM EST Office Visit [facility] [address] [place] [address] [place] [address] [phone] Nhi Bartholomew MD [address] [phone] Appt Reason: New Patient Request Appointment [facility] Comment on above: Appt Reason: New Pat ient Request Appointment Start: 09-09-2023 Lipid panel Lipids [facility] Start: 05-01-2023 COVID-19 Vaccine ( season) COVID-19 Vaccine ( season) [facility] Start: 04-03-2023 Lipid panel Lipids [facility] Start: 03-31-2023 Influenza vaccination B ON [facility] Start: 06-03-2022 Lipid panel Lipid screen [facility] Start: 05-01-2022 Influenza vaccination Flu vaccine (# 1) [facility] Start: 03-31-2022 Influenza vaccination Flu vaccine (# 1) [facility] Start: 12-26-2021 Lipid panel Lipid screen [facility] Work Phone: Start: 08-20-2021 Lipid panel Lipid screen [facility] [place] Start: 05-01-2021 Influenza vaccination Flu vaccine (# 1) [facility] Start: 04-12-2021 COVID-19 Vaccine (3 - Booster for Pfizer series) COVID-19 Vaccine (3 - Booster for Pfizer series) [facility] Start: 03-12-2021 COVID-19 Vaccine (3 - Booster for Pfizer series) COVID-19 Vaccine (3 - Booster for Pfizer series) [facility] Start: 12-08-2020 COVID-19 Vaccine (3 - Booster for Pfizer series) COVID-19 Vaccine (3 - Booster for Pfizer series) [facility] Start: 05-01-2020 Influenza vaccination Flu vaccine (# 1) [facility] [place] Start: 04-04-2020 Lipid screen Lipid screen [facility] Work Phone: Start: 05-01-2019 Influenza vaccination Flu vaccine (# 1) [place] Start: 02-20-2019 Annual Wellness Visi t (AWV) Annual Wellness Visit (AWV) [facility] Start: 2003 Pneumococcal 65+ yea rs Vaccine (1 - PCV) Pneumococcal 65+ years Vaccine (1 - PCV) [facility] Start: 2003 Pneumococcal 65+ yea rs Vaccine (1 of 1 - PPSV23) Pneumococcal 65+ years Vaccine (1 of 1 - PPSV23) [facility] Start: 2003 Pneumococcal 65+ yea rs Vaccine (1 of 2 - PCV13) Pneumococcal 65+ years Vaccine (1 of 2 - PCV13) [place] Start: 2001 Annual Wellness Visi t (AWV) Annual Wellness Visit (AWV) [place] Start: 1998 Respiratory Syncytia l Virus (RSV) or age 60 yrs+ (1 - 1-dose 60+ series) Respiratory Syncytial Virus (RSV) or age 60 yrs+ (1 - 1-dose 60+ series) [facility] Start: 1988 Shingles Vaccine (1 of 2) Shingles Vaccine (1 of 2) [facility] Start: 1957 DTaP/Tdap/Td vaccine (1 - Tdap) DTaP/Tdap/Td vaccine (1 - Tdap) [facility] Start: 1950 COVID-19 Vaccine (1) COVID-19 Vaccin e (1) [facility] [employer] Phone: Start: 1950 Depression Screen Depression Screen [facility] [employer] Start: 1949 DTaP/Tdap/Td vaccine (1 - Tdap) DTaP/Tdap/Td vaccine (1 - Tdap) [facility] [employer] Phone: Start: 1938 Annual Wellness Visi t (AWV) Annual Wellness Visit (AWV) [facility] [employer] End: 07-09-2021 COVID-19 [facility] Work Phone: Comment on above: Once for 1 Occurrenc es starting 07/09/2021 until 07/09/2021 End: 02-03-2023 Lipid panel [facility] Work Phone: Comment on above: Once for 1 Occurrenc es starting 02/03/2023 until 02/03/2023 Payers Date Payer Category Payer Private Health Insurance 2023 Private Health Insurance CLI [id number] Private Health Insurance HUMANA HU[employer]NA MEDICARE SUPP xxxxxxxxx 2015-Present [address] [address] [place] [address] xxxxxxxxx [id number] 2014 Medicare MEDICARE MEDICAR E PART A AND B xxxxxxxxxxx 2014-Present [phone] [address] [address] [place] [address] xxxxxxxxxxx [id number] 2003 Medicare 1959 Medicare [id number] 1959 Private Health Insurance [id number] 1938 Unknown [id number] .593 1938 Unknown [id number] .593 1938 Unknown [id number] .196 1938 Unknown [id number] .196 1938 Unknown [id number] .173 1938 Unknown [id number] [id number] .173 1938 Unknown [id number] .173 1938 Unknown [id number] .173 1938 Unknown [id number] .173 1938 Unknown [id number] [id number] .173 1938 Unknown [id number] .173 1938 Unknown [id number] [id number] .173 1938 Unknown [id number] .173 1938 Unknown [id number] .173 Social History Date Type Detail Facility Start: 11-28-2013 End: 07-14-2023 Tobacco smoking status NHIS Former [place] History of tobacco use Pipe [place] Start: 11-28-2013 End: 07-14-2023 Alcohol intake Yes [place] Start: 11-28-2013 End: 07-14-2023 Tobacco Comment quit 30 years ago [place] Start: 11-28-2013 Alcohol Comment occasional [place], [place] Start: 1940 Sex Assigned At Not on file [place] Start: 11-28-2013 End: 07-14-2023 Tobacco use and exposure Never used [place] Start: 11-28-2013 End: 07-14-2023 Alcohol intake Current drinker of alcohol (finding) [employer] Phone: History of tobacco use Current smoker [employer] Phone: Start: 07-14-2023 History of Social function [facility] [employer] Medical Equipment Procedure Code Equipment Code Equipment Original Text Equi pment Identifier Dates Knee [id number] Knee [id number] Clinical Note 06-18-2022 Note Date & Type Note Facility 06-18-2022 Note PROCEDURE: XR ANKLE RT MIN 3 VIEWS, XR FOOT RT MIN 3 VIEWS HISTORY: Pain of right ankle joint COMPARISON: XR ankle right 10/10/2021, XR foot right 05/02/2020 FINDINGS: BONES:Prior right ankle replacement without evidence of hardware fracture, loosening, or change in alignment. No bone fracture dislocation. Stable heterotopic bone formation posterior to the ankle. Marked degenerative changes of the first metatarsophalangeal joint. SOFT TISSUES:No visible soft tissue swelling. EFFUSION:None visible. OTHER: Negative. IMPRESSION: 1. Stable surgical changes without evidence of hardware failure. 2. Stable to slight progression of marked degenerative changes of the first metatarsophalangeal joint. Electronically authenticated by: FREDI POZO Date: 2022-06-18 21:05 [facility] Clinical Note 06-18-2022 Note Date & Type Note Facility 06-18-2022 Note PROCEDURE: XR ANKLE RT MIN 3 VIEWS, XR FOOT RT MIN 3 VIEWS HISTORY: Pain of right ankle joint COMPARISON: XR ankle right 10/10/2021, XR foot right 05/02/2020 FINDINGS: BONES:Prior right ankle replacement without evidence of hardware fracture, loosening, or change in alignment. No bone fracture dislocation. Stable heterotopic bone formation posterior to the ankle. Marked degenerative changes of the first metatarsophalangeal joint. SOFT TISSUES:No visible soft tissue swelling. EFFUSION:None visible. OTHER: Negative. IMPRESSION: 1. Stable surgical changes without evidence of hardware failure. 2. Stable to slight progression of marked degenerative changes of the first metatarsophalangeal joint. Electronically authenticated by: FREDI POZO Date: 2022-06-18 21:05 [facility] Clinical Note 10-10-2021 Note Date & Type Note Facility 10-10-2021 Note PROCEDURE: XR ANKLE RT MIN 3 VIEWS COMPARISON: 04/11/2021 HISTORY: Pain of right ankle joint FINDINGS: BONES:Status arthroplasty. Tibial plafond and arthroplasty. Single cannulated screw through the medial malleolus. Stable heterotopic ossification. No acute fracture or dislocation. No mechanical failure. SOFT TISSUES:Negative. No visible soft tissue swelling. EFFUSION:None visible. OTHER: Negative. IMPRESSION: Stable exam with no mechanical failure. 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 Latest Code Status on File Code Status Date Activated Date Inactivated Comments Full Code 12/14/2013 9:05 AM 12/14/2013 2:50 PM Documents on File Type Date Recorded Patient Motor Mechanic Expl anation ACP-Advance Directive ACP-Power of Glassware Maker Demonstrator Documents on File Type Date Recorded Patient Motor Mechanic Expl anation ACP-Advance Directive 10/02/2022 11:34 AM Latest Code Status on File Code Status Date Activated Date Inactivated Comments Full Code 12/14/2013 9:05 AM 12/14/2013 2:50 PM Documents on File Type Date Recorded Patient Motor Mechanic Expl anation ACP-Advance Directive 10/02/2022 11:34 AM Latest Code Status on File Code Status Date Activated Date Inactivated Comments Full Code 12/14/2013 9:05 AM 12/14/2013 2:50 PM Summary Purpose Family History No Family History Records FoundNo Family History Records FoundNo Family History Records Found Additional Source Comments Care Teams (unrecognized sec tion and content) Patch Washer Relationship Specialty Start Date End Date Rebekah Benítez, [address] [phone] PCP - General 07/07/12 Patch Washer Relationship Specialty Start Date End Date Rebekah Benítez, [address] [phone] PCP - General 07/07/12 Patch Washer Relationship Specialty Start Date End Date Rebekah Benítez, [address] [phone] PCP - General 07/07/12 Patch Washer Relationship Specialty Start Date End Date Rebekah Benítez DO [address] [place] [phone] PCP - General 07/07/12 (unrecognized sect ion and content) No Status Records FoundNo Status Records FoundNo Status Records Found INFORMATION SOURCE (unrecogn ized section and content) DATE CREATED AUTHOR 06/23/2022 [facility] DATE CREATED AUTHOR AUTHOR'S ORGANIZ ATION 10/31/2023 [facility] DATE CREATED AUTHOR AUTHOR'S ORGANIZ ATION 12/01/2023 [facility] Reason for Visit (unrecogniz ed section and content) Specialty Diagnoses / Procedures Referred By Contac t Referred To Contact Diagnoses SOB (shortness of breath) Leg swelling R06.02 (ICD-10-CM) - SOB (shortness of breath) Procedures Nuclear stress test with myocardial perfusion CHG MYOCARDIAL SPECT MULTIPLE STUDIES 99491 - CHG MYOCARDIAL SPECT MULTIPLE STUDIES Fredi Moe MD [address] [place] [address] Referral ID Status Reason Start Date Expiration Date Visits Re quested Visits Authorized [id number] Closed 07/14/2023 07/13/2024 3 3 FOR RECORDS PERTAINING TO PATIENTS WHO ARE OR HAVE BEEN ENROLLED IN A CHEMICAL DEPENDENCY/SUBSTANCEABUSE PROGRAM, SOME INFORMATION MAY BE OMITTED. This clinical summary was aggregated from multiple sources. Caution should be exercised in using it in the provision of clinical care. This summary normalizes information from multiple sources, and as a consequence, information in this document may materially change the coding, format and clinical context of patient data. In addition, data may be omitted in some cases. CLINICAL DECISIONS SHOULD BE BASED ON THE PRIMARY CLINICAL RECORDS. [email or web address] provides no warranty or guarantee of the accuracy or completeness of information in this document.
[2023-12-24 06:55] LABS: Glucometer 102 mg/dL (74-106)
[2023-12-24] MEDS: LACTATED RINGER'S SOLUTION 1,000 ML 50 ML IV ×2 (07:06→08:50)
[2023-12-24] MEDS: CEFAZOLIN SODIUM/DEXTROSE,ISO 2 GM/50 ML PIGGYBACK IV (07:29)
[2023-12-24] MEDS: LIDOCAINE HCL 1% 100 MG/10 ML MDV INJ (08:10)
[2023-12-24] MEDS: BUPIVACAINE HCL 0.5% PF 50 MG/10 ML VIAL INJ (08:51)
[2023-12-24 09:18] LABS: Glucometer 107 mg/dL (74-106)
--- NOTE | 2023-12-24 09:22 | XR_ITS ---
The [address] [address] Patient Name: JUAN ZELAYA MRN: [id number] date: 1940 Sex: M Assigned Patient Location: [facility] Current Patient Location: Accession/Order Number: [id number] Exam Date: 12/24/2023 09:32 Report Date: 12/25/2023 05:41 At the request of: ABEBA ORTIZ Procedure: XR foot RT min 3V PROCEDURE: XR foot RT min 3V HISTORY: postop xr pacu COMPARISON: XR foot right 07/01/2023 FINDINGS: BONES:Interval resection of the head of the 5th proximal phalanx. Marked degenerative changes the first metatarsophalangeal joint. Prior prosthetic replacement of the talus, prosthetic replacement of the articular surface of the tibial plafond, and single screw repair of medial malleolus remote fracture. SOFT TISSUES:No visible soft tissue swelling. EFFUSION:None visible. OTHER: Negative. XR/XR foot RT min 3V IMPRESSION: 1. Interval resection of head of 5th proximal phalanx. 2. Stable degenerative changes and prior surgical changes. Electronically authenticated by: MUNA POZO Date: 12/25/2023 05:41
--- NOTE | 2023-12-24 09:44 | PM.ORONB ---
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 Bony prominence noted at the DIPJ of the 4th and 5th toes. Procedure in detail: Patient was identified in pre op and consent was reviewed. Correct side and site were identified and marked. Pre-op antibiotics were started. Patient was brought to OR suite and place on table in a supine position. General anesthesia was administered. Tourniquet applied. Operative extremity was prepped and draped in usual sterile fashion. Formal time-out was performed and the foot/ankle were exsanguinated and tourniquet inflated. Incision was placed over the dorsal lateral aspect of the 5th metatarsal phalangeal joint. Combination sharp and blunt dissection gained access to the 5th MPJ and capsulotomy was performed. A sagittal saw was then used to remove bony prominence from the lateral aspect. With attention to the 5t digit a semi-elliptical dorsal incision was created over the PIPJ. Sharp and blunt dissection down to the extensor tendon was performed. The tendon was incised transversely then reflected proximally. A sagittal saw was used to remove the proximal phalanx head. The site was flushed with sterile saline. The tendon was repaired with absorbable suture and the incisions were then closed in layers. the stab incision was placed on the lateral aspect of the 4th toe DIPJ comminution sharp and blunt dissection gained access to the condyles of the distal and middle phalanx. A hand rasp was used to smooth and contour the phalanges removing any bony prominence. Surgical site was irrigated with copious saline. Then a stab incision was placed on the medial aspect of the distal phalanx of the 5th toe adjacent to the 5th nail plate. Comminution sharp blunt dissection gained access to the distal phalanx which was contoured and smoothed with a hand rasp. Surgical sites were irrigated copiously saline and skin suture was used to close skin. Tourniquet was deflated with a prompt hyperemic response. A dry sterile dressing was then applied with a surgical shoe Postoperative plan: Discharge home under family's care Post op instructions provided verbally and written prescription(s) were placed in chart WBAT operative foot in surgical shoe until follow-up Follow-up in 3 week Implants: none Anesthesia: General-LMA Surgeon: Rupert [facility] Art Therapist: Facundo Weathers Estimated blood loss (mL): 10 Condition: stable Disposition: PACU
== END 2023-12-24 10:43 | disposition home or self-care (01) ==
PROVIDERS: Visit Provider Podiatrist Foot & Ankle Surgery
PROC: (CPT 28124; principal; 2023-12-24 07:30)
DX: M20.41 Other hammer toe(s) (acquired), right foot (principal); M89.8X7 Other specified disorders of bone, ankle and foot; M21.621 Bunionette of right foot; Z86.16 Personal history of COVID-19; I10 Essential (primary) hypertension; R12 Heartburn; Z90.49 Acquired absence of other specified parts of digestive tract; Z87.891 Personal history of nicotine dependence; E78.5 Hyperlipidemia, unspecified; M19.071 Primary osteoarthritis, right ankle and foot; Z96.661 Presence of right artificial ankle joint; Z96.652 Presence of left artificial knee joint; L84 Corns and callosities; M20.21 Hallux rigidus, right foot; K21.9 Gastro-esophageal reflux disease without esophagitis
CPT/HCPCS: 28124; 28285; 36415; 73630; 82948; J1094; J2704

== ENCOUNTER 2024-01-27 11:47 | Outpatient (OUT) | payer MEDICARE, SELFPAY ==
--- NOTE | 2024-01-27 | XR_ITS ---
The [address] [address] Patient Name: JUAN ZELAYA MRN: [id number] date: 1940 Sex: M Assigned Patient Location: Current Patient Location: Accession/Order Number: [id number] Exam Date: 01/27/2024 11:52 Report Date: 01/27/2024 13:34 At the request of: LELAND RICHARDSON Procedure: XR foot RT min 3V PROCEDURE: XR ankle RT min 3V, XR foot RT min 3V COMPARISON: 12/24/2023 HISTORY: RIGHT ANKLE PAIN FINDINGS: BONES:Total talus replacement. Tibial plafond arthroplasty. No acute fracture, dislocation or mechanical failure. Oblique fracture involving the head and neck of the fifth metatarsal with lytic changes consistent with a subacute fracture. Stable resection head of the fifth proximal phalanx. 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 No visible soft tissue swelling. EFFUSION:None visible. OTHER: Call results initiated through operations. XR/XR foot RT min 3V IMPRESSION: Subacute oblique fracture involving the head and neck of the fifth metatarsal Stable degenerative and postsurgical changes Electronically authenticated by: JAG CANTOR Date: 01/27/2024 13:34
--- NOTE | 2024-01-27 | XR_ITS ---
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 Tibial plafond arthroplasty. No acute fracture, dislocation or mechanical failure. Oblique fracture involving the head and neck of the fifth metatarsal with lytic changes consistent with a subacute fracture. Stable resection head of the fifth proximal phalanx. 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 No visible soft tissue swelling. EFFUSION:None visible. OTHER: Call results initiated through operations. XR/XR ankle RT min 3V IMPRESSION: Subacute oblique fracture involving the head and neck of the fifth metatarsal Stable degenerative and postsurgical changes Electronically authenticated by: JAG CANTOR Date: 01/27/2024 13:34
--- OUTSIDE RECORDS SUMMARY | 2024-01-27 12:04 | XMS_ITS | CCD ---
Author Organization [facility] Care Team Providers Care 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 Name Role Phone Rebekah Correa Primary Care Provider LELAND RICHARDSON Admitting Unavailable LELAND RICHARDSON Attending Unavailable NOHELIA, DR FREDI Rodriguez Consulting Unavailable LELAND RICHARDSON Consulting Unavailable LELAND RICHARDSON Admitting Unavailable LELAND RICHARDSON Attending Unavailable DEVAUGHN, DR JAG Ruiz Consulting Unavailable LELAND RICHARDSON Consulting Unavailable Jackelin FULLER, Rebekah Bauman Primary Care Provider Rebekah Correa DO Primary Care Provider [phone] Jackelin DO, Rebekah Bauman Primary Care Provider [phone] JACKELIN, REBEKAH F Primary Care Unavailable JACKELIN, REBEKAH F Referring Unavailable JACKELIN, REBEKAH Bauman Referring Unavailable JACKELIN, REBEKAH Mitul Primary Care Unavailable JACKELIN, REBEKAH F Referring Unavailable NHI BARTHOLOMEW Primary Care Unavailable FREDI MOE Referring Unavailable JACKELIN, REBEKAH Bauman Primary Care Unavailable FREDI MOE Attending Unavailable JACKELIN, REBEKAH F Primary Care Unavailable FREDI MOE Attending Unavailable FREDI MOE Referring Unavailable FREDI MOE Attending Unavailable JACKELIN, REBEKAH F Primary Care Unavailable FREDI MOE Referring Unavailable JACKELIN, REBEKAH F Primary Care Unavailable JACKELIN, REBEKAH F Referring Unavailable FREDI MOE Attending Unavailable JACKELIN, REBEKAH F Primary Care Unavailable FREDI MOE Referring Unavailable JACKELIN, REBEKAH Bauman Referring Unavailable JACKELIN, REBEKAH F Primary Care Unavailable JACKELIN, REBEKAH F Primary Care Unavailable FREDI MOE Attending Unavailable FREDI MOE Referring Unavailable Jaden Werner MD Attending Unavailab le Jackelin Rebekah FULLER Primary Care Jaden Pickard MD Attending Unavailab le Jackelin , Rebekah Lr Primary Care Unavai lable Allergies Allergy Classification Reported Allergen(s) Allergy Type Date of Onset Reaction(s) Facility (6 sources) Sulfonamides (Antibiotic) Propensity to adverse reactions to drug 01-06-20 13 Other (See Comments) [place] (1 source) Sulfonamides (Antibiotic) Drug allergy (disorder) [facility] (3 sources) Sulfonamides (Antibiotic) Propensity to adverse reactions to drug 01-06-20 13 Other (See Comments) [facility]) Sulfamethoxazole / Trimethoprim; Translations: [Bactrim] Drug Allergy [facility] Repository Medications Current Medications Medication Drug Class(es) Dates Sig (Normalized) Sig (Original) lutein 2.5 mg / omega-3 acid ethyl esters (correction) 250 mg / zeaxanthin 0.5 mg oral capsule (9 sources) [place] 1-Dgiyxi-Uiauqbvndo 250-2.5-0.5 MG CAPS Take by mouth daily. [...] A1Con 12-01-2023 Glucose [Mass/Vol] 114 mg/dL Normal [facility] Comment on above: Result Comment: The ADA and AACC recommend providing the estimated average glucose result to permit better patient understanding of their HBA1c result. Performed By: #### L IPR, GLYHGB #### [facility] [employer] [address] [place] [address] Career Education Teacher: Trev Esparza MD #### CP #### [facility] [address] [place] [address] Career Education Teacher: Jag Martinez MD HbA1c (Bld) [Mass fraction] 5.6 % Normal 4.0-6.0 [facility] Comment on above: Performed By: #### L IPR, GLYHGB #### [facility] [address] [place] [address] Career Education Teacher: Trev Esparza MD #### CP #### [facility] [address] [place] [address] Dr[address] [place] [employer], [place] [id number] Career Education Teacher: Jag Martinez MD Lipid Profileon 12-01-2023 Cholesterol [Mass/Vol] 168 mg/dL Normal 0-199 [facility] Comment on above: Result Comment: Cholesterol Guidelines: <200 Desirable 200-240 Borderline >240 Undesirable Performed By: #### L IPR, GLYHGB #### [address] [address] Career Education Teacher: Trev Esparza MD #### CP #### [address] [place] [employer], [place] [id number] Career Education Teacher: Jag Martinez MD Cholesterol in HDL [Mass/Vol] 50 mg/dL Normal >40 [facility] Comment on above: Result Comment: HDL Guidelines: <40 Undesirable 40-59 Borderline >59 Desirable Performed By: #### L IPR, GLYHGB #### [address] [address] Career Education Teacher: Trev Esparza MD #### CP #### [address] [place], [place] [id number] Career Education Teacher: Jag Martinez MD Cholesterol in LDL [Mass/Vol] 101 mg/dL High 0-100 [facility] Comment on above: Result Comment: LDL Guidelines: <100 Desirable 100-129 Near to/above Desirable 130-159 Borderline >159 Undesirable Direct (measured) LDL and calculated LDL are not interchangeable tests. Performed By: #### L IPR, GLYHGB #### [address] [address] Career Education Teacher: Trev Esparza MD #### CP #### [facility] [address] [place] [address] Dr[address] [place], [place] [phone] Career Education Teacher: Jag Martinez MD Cholesterol in VLDL [Mass/Vol] 17 mg/dL Normal [facility] Comment on above: Performed By: #### L IPR, GLYHGB #### [facility] [address] [place] [address] Career Education Teacher: Trev Esparza MD #### CP #### [facility] [address] [place] [address] [address] [place] [address] Career Education Teacher: Jag Martinez MD Cholesterol.total/Cho lesterol in HDL [Mass ratio] 3.0 {ratio} Normal [facility] Comment on above: Performed By: #### L IPR, GLYHGB #### [address] [address] Career Education Teacher: Trev Esparza MD #### CP #### [address] [place] [employer], [place] [id number] Career Education Teacher: Jag Martinez MD Triglyceride [Mass/Vol] 85 mg/dL Normal <150 [facility] Comment on above: Result Comment: Triglyceride Guidelines: <150 Desirable 150-199 Borderline 200-499 High >499 Very high Based on AHA Guidelines for fasting triglyceride, May 2012. Performed By: #### L IPR, GLYHGB #### [address] [address] Career Education Teacher: Trev Esparza MD #### CP #### [address] [place] [employer], [place] [phone] Career Education Teacher: Jag Martinez MD Comp Metabolic Profon 2023 Albumin [Mass/Vol] 4.1 g/dL Normal 3.5-5.2 [facility] Comment on above: Performed By: #### L IPR, GLYHGB #### [address] [place] [address] Career Education Teacher: Trev Esparza MD #### CP #### [facility] [address] [place] [employer], [place] [phone] Career Education Teacher: Jag Martinez MD Albumin/Glob Ratio 1.6 Normal 1.0-2.5 [facility] Comment on above: Performed By: #### L IPR, GLYHGB #### [address] [place] [address] Career Education Teacher: Trev Esparza MD #### CP #### [address] [place] [employer], [place] [phone] Career Education Teacher: Jag Martinez MD Alkaline Phos 50 U/L Normal 40-129 [facility] Comment on above: Performed By: #### L IPR, GLYHGB #### [address] [address] Career Education Teacher: Trev Esparza MD #### CP #### [address] [place] [employer], [place] [phone] Career Education Teacher: Jag Martinez MD ALT [Catalytic activity/Vol] 20 U/L Normal 5-41 [facility] Comment on above: Performed By: #### L IPR, GLYHGB #### [address] [address] Career Education Teacher: Trev Esparza MD #### CP #### [address] [place] [employer], [place] [phone] Career Education Teacher: Jag Martinez MD Anion gap [Moles/Vol] 8 mmol/L Low 9-17 [facility] Comment on above: Performed By: #### L IPR, GLYHGB #### [address] [address] Career Education Teacher: Trev Esparza MD #### CP #### [address] [place] [employer], [place] [phone] Career Education Teacher: Jag Martinez MD AST [Catalytic activity/Vol] 20 U/L Normal <40 [facility] Comment on above: Performed By: #### L IPR, GLYHGB #### [facility] [address] [place] [address] Career Education Teacher: Trev Esparza MD #### CP #### [facility] [address] [employer] [employer], [place] [phone] Career Education Teacher: Jag Martinez MD Bilirubin [Mass/Vol] 0.5 mg/dL Normal 0.3-1.2 [facility] Comment on above: Performed By: #### L IPR, GLYHGB #### [address] [address] Career Education Teacher: Trev Esparza MD #### CP #### [facility] [address] [place] [address] Dr[address] [place] [phone] Career Education Teacher: Jag Martinez MD BUN/CRE Ratio 23 High 9-20 [facility] Comment on above: Performed By: #### L IPR, GLYHGB #### [address] [address] Career Education Teacher: Trev Esparza MD #### CP #### [facility] [address] [place] [address] Dr[address] [employer], [place] [phone] Career Education Teacher: Jag Martinez MD Calcium [Mass/Vol] 9.2 mg/dL Normal 8.6-10.4 [facility] Comment on above: Performed By: #### L IPR, GLYHGB #### [address] [address] Career Education Teacher: Trev Esparza MD #### CP #### [facility] [address] [place] [employer], [place] [phone] Career Education Teacher: Jag Martinez MD Chloride [Moles/Vol] 107 mmol/L Normal 98-107 [facility] Comment on above: Performed By: #### L IPR, GLYHGB #### [address] [phone] Career Education Teacher: Trev Esparza MD #### CP #### [facility] [address] [place] [employer], [place] [phone] Career Education Teacher: Jag Martinez MD CO2 [Moles/Vol] 26 mmol/L Normal 20-31 [facility] Comment on above: Performed By: #### L IPR, GLYHGB #### [address] [id number] Career Education Teacher: Trev Esparza MD #### CP #### [facility] [address] [place], [place] [phone] Career Education Teacher: Jag Martinez MD Creatinine [Mass/Vol] 0.7 mg/dL Normal 0.7-1.2 [facility] Comment on above: Performed By: #### L IPR, GLYHGB #### [address] [phone] Career Education Teacher: Trev Esparza MD #### CP #### [facility] [address] [place] [address] Career Education Teacher: Jag Martinez MD GFR/1.73 sq M.predicted among non-blacks MDRD (S/P/Bld) [Vol rate/Area] mL/min/{1.73_m2} Normal >60 [facility] Comment on above: Result Comment: These results [...] Performed By: #### L IPR, GLYHGB #### [address] [address] Career Education Teacher: Trev Esparza MD #### CP #### [address] [place] [address] Career Education Teacher: Jag Martinez MD Glucose [Mass/Vol] 89 mg/dL Normal 70-99 [facility] Comment on above: Performed By: #### L IPR, GLYHGB #### [address] [address] Career Education Teacher: Trev Esparza MD #### CP #### [address] [place] [phone] Career Education Teacher: Jag Martinez MD Potassium [Moles/Vol] 4.8 mmol/L Normal 3.7-5.3 [facility] Comment on above: Performed By: #### L IPR, GLYHGB #### [address] [address] Career Education Teacher: Trev Esparza MD #### CP #### [address] [place] [phone] Career Education Teacher: Jag Martinez MD Protein [Mass/Vol] 6.6 g/dL Normal 6.4-8.3 [facility] Comment on above: Performed By: #### L IPR, GLYHGB #### [address] [address] Career Education Teacher: Trev Esparza MD #### CP #### [address] [place] [address] Career Education Teacher: Jag Martinez MD Sodium [Moles/Vol] 141 mmol/L Normal 135-144 [facility] Comment on above: Performed By: #### L IPR, GLYHGB #### [address] [address] Career Education Teacher: Trev Esparza MD #### CP #### [facility] [address] [place], [place] [address] Career Education Teacher: Jag Martinez MD Urea nitrogen [Mass/Vol] 16 mg/dL Normal 04-22 [facility] Comment on above: Performed By: #### L IPR, GLYHGB #### [facility] [address] [place], [place] [id number] Career Education Teacher: Trev Esparza MD #### CP #### [facility] [address] [place] [address] Career Education Teacher: Jag Martinez MD XR CHEST (2 VW)on [...] Jordan Hdez MD 06/24/23 Final result Normal [facility] Comp Metabolic Profon 2022 Albumin [Mass/Vol] 4.2 g/dL Normal 3.5-5.2 [facility] Comment on above: Performed By: #### L IPR, PSAS #### [facility] [address] [place] [address] Career Education Teacher: Trev Esparza MD #### CP #### [facility] [address] [place] [address] Career Education Teacher: Jag Martinez MD Albumin/Glob Ratio 1.6 Normal 1.0-2.5 [facility] Comment on above: Performed By: #### L IPR, PSAS #### [facility] [address] [place], [place] [phone] Career Education Teacher: Trev Esparza MD #### CP #### [address] [place], [place] 7921483 Career Education Teacher: Jag Martinez MD Alkaline Phos 54 U/L Normal 40-129 [facility] Comment on above: Performed By: #### L IPR, PSAS #### [address] [place] [address] Career Education Teacher: Trev Esparza MD #### CP #### [address] [place] [address] Career Education Teacher: Jag Martinez MD ALT [Catalytic activity/Vol] 26 U/L Normal 5-41 [facility] Comment on above: Performed By: #### L IPR, PSAS #### [address] [address] Career Education Teacher: Trev Esparza MD #### CP #### [address] [place], [place] 0001[address] Career Education Teacher: Jag Martinez MD Anion gap [Moles/Vol] 8 mmol/L Low 9-17 [facility] Comment on above: Performed By: #### L IPR, PSAS #### [address] [address] Career Education Teacher: Trev Esparza MD #### CP #### [address] [place] [address] Career Education Teacher: Jag Martinez MD AST [Catalytic activity/Vol] 23 U/L Normal <40 [facility] Comment on above: Performed By: #### L IPR, PSAS #### [address] [address] Career Education Teacher: Trev Esparza MD #### CP #### [address] [place] [employer], [place] [phone] Career Education Teacher: Jag Martinez MD Bilirubin [Mass/Vol] 0.4 mg/dL Normal 0.3-1.2 [facility] Comment on above: Performed By: #### L IPR, PSAS #### [facility] [address] [place] [address] Career Education Teacher: Trev Esparza MD #### CP #### [facility] [address] [place] [employer], [place] [phone] Career Education Teacher: Jag Martinez MD BUN/CRE Ratio 23 High 9-20 [facility] Comment on above: Performed By: #### L IPR, PSAS #### [address] [address] Career Education Teacher: Trev Esparza MD #### CP #### [facility] [address] [place] [address] Dr[address] [place] [phone] Career Education Teacher: Jag Martinez MD Calcium [Mass/Vol] 9.4 mg/dL Normal 8.6-10.4 [facility] Comment on above: Performed By: #### L IPR, PSAS #### [address] [address] Career Education Teacher: Trev Esparza MD #### CP #### [facility] [address] [place] [address] Dr[address] [place] [employer], [place] [phone] Career Education Teacher: Jag Martinez MD Chloride [Moles/Vol] 106 mmol/L Normal 98-107 [facility] Comment on above: Performed By: #### L IPR, PSAS #### [address] [address] Career Education Teacher: Trev Esparza MD #### CP #### [facility] [address] [place] [address] Dr[address] [place], [place] [phone] Career Education Teacher: Jag Martinez MD CO2 [Moles/Vol] 27 mmol/L Normal 20-31 [facility] Comment on above: Performed By: #### L IPR, PSAS #### [address] [place] [address] Career Education Teacher: Trev Esparza MD #### CP #### [facility] [address] [place] [address] Dr[address] [place] [employer], [place] [phone] Career Education Teacher: Jag Martinez MD Creatinine [Mass/Vol] 0.8 mg/dL Normal 0.7-1.2 [facility] Comment on above: Performed By: #### L IPR, PSAS #### [address] [address] Career Education Teacher: Trev Esparza MD #### CP #### [facility] [address] [place] [address] [address] [address] Career Education Teacher: Jag Martinez MD GFR/1.73 sq M.predicted among non-blacks MDRD (S/P/Bld) [Vol rate/Area] mL/min/{1.73_m2} Normal >60 [facility] Comment on above: Result Comment: These results [...] Performed By: #### L IPR, PSAS #### [facility] [address] [place] [address] Career Education Teacher: Trev Esparza MD #### CP #### [facility] [address] [place] [address] [address] [address] Career Education Teacher: Jag Martinez MD Glucose [Mass/Vol] 106 mg/dL High 70-99 [facility] Comment on above: Performed By: #### L IPR, PSAS #### [address] [phone] Career Education Teacher: Trev Esparza MD #### CP #### [facility] [address] [place] [employer], [place] 4007983 Career Education Teacher: Jag Martinez MD Potassium [Moles/Vol] 4.6 mmol/L Normal 3.7-5.3 [facility] Comment on above: Performed By: #### L IPR, PSAS #### [address] [address] Career Education Teacher: Trev Esparza MD #### CP #### [facility] [address] [place] [address] Career Education Teacher: Jag Martinez MD Protein [Mass/Vol] 6.8 g/dL Normal 6.4-8.3 [facility] Comment on above: Performed By: #### L IPR, PSAS #### [address] [address] Career Education Teacher: Trev Esparza MD #### CP #### [facility] [address] [place] 2448083 Career Education Teacher: Jag Martinez MD Sodium [Moles/Vol] 141 mmol/L Normal 135-144 [facility] Comment on above: Performed By: #### L IPR, PSAS #### [address] [address] Career Education Teacher: Trev Esparza MD #### CP #### [facility] [address] [place], [place] 4701183 Career Education Teacher: Jag Martinez MD Urea nitrogen [Mass/Vol] 18 mg/dL Normal 8-23 [facility] Comment on above: Performed By: #### L IPR, PSAS #### [address] [address] Career Education Teacher: Trev Esparza MD #### CP #### [facility] [address] [place], [place] [address] Career Education Teacher: Jag Martinez MD Lipid Profileon 06-15-2023 Cholesterol [Mass/Vol] 154 mg/dL Normal 0-199 [facility] Comment on above: Result Comment: Cholesterol Guidelines: <200 Desirable 200-240 Borderline >240 Undesirable Performed By: #### L IPR, PSAS #### [address] [address] Career Education Teacher: Trev Esparza MD #### CP #### [facility] [address] [place] [address] Career Education Teacher: Jag Martinez MD Cholesterol in HDL [Mass/Vol] 48 mg/dL Normal >40 [facility] Comment on above: Result Comment: HDL Guidelines: <40 Undesirable 40-59 Borderline >59 Desirable Performed By: #### L IPR, PSAS #### [address] [address] Career Education Teacher: Trev Esparza MD #### CP #### [address] [place] [address] Career Education Teacher: Jag Martinez MD Cholesterol in LDL [Mass/Vol] 87 mg/dL Normal 0-100 [facility] Comment on above: Result Comment: LDL Guidelines: <100 Desirable 100-129 Near to/above Desirable 130-159 Borderline >159 Undesirable Direct (measured) LDL and calculated LDL are not interchangeable tests. Performed By: #### L IPR, PSAS #### [address] [address] Career Education Teacher: Trev Esparza MD #### CP #### [address] [place] [address] Career Education Teacher: Jag Martinez MD Cholesterol in VLDL [Mass/Vol] 19 mg/dL Normal [facility] Comment on above: Performed By: #### L IPR, PSAS #### [address] [place] [address] Career Education Teacher: Trev Esparza MD #### CP #### [facility] [address] [place] [employer], [place] [phone] Career Education Teacher: Jag Martinez MD Cholesterol.total/Cho lesterol in HDL [Mass ratio] 3.0 {ratio} Normal [facility] Comment on above: Performed By: #### L IPR, PSAS #### [address] [address] Career Education Teacher: Trev Esparza MD #### CP #### [facility] [address] [place] [address] [address] [address] Career Education Teacher: Jag Martinez MD Triglyceride [Mass/Vol] 96 mg/dL Normal 0-149 [facility] Comment on above: Result Comment: Triglyceride Guidelines: <150 Desirable 150-199 Borderline 200-499 High >499 Very high Based on AHA Guidelines for fasting triglyceride, May 2012. Performed By: #### L IPR, PSAS #### [address] [address] Career Education Teacher: Trev Esparza MD #### CP #### [facility] [address] [place] [address] [address] [place], [place] [address] Career Education Teacher: Jag Martinez MD PSA, Screeningon 06-15-2023 Prostatic Spec. Ag 3.71 ng/mL Normal <4.1 [facility] Comment on above: Result Comment: The Nikhil ECLIA assay is used. Results obtained with different assay methods cannot be used interchangeably. Performed By: #### L IPR, PSAS #### [address] [address] Career Education Teacher: Trev Esparza MD #### CP #### [facility] [address] [place] [address] Career Education Teacher: Jag Martinez MD Lipid Profileon 02-04-2023 Cholesterol [Mass/Vol] 153 mg/dL Normal <200 [facility] Comment on above: Result Comment: Cholesterol Guidelines: <200 Desirable 200-240 Borderline >240 Undesirable Performed By: #### C P #### [facility] [address] [place] [address] Dr. [place] [phone] Career Education Teacher: Jag Martinez MD #### LIPR #### [address] [place], [place] [phone] Career Education Teacher: Trev Esparza MD Cholesterol in HDL [Mass/Vol] 50 mg/dL Normal >40 [facility] Comment on above: Result Comment: HDL Guidelines: <40 Undesirable 40-59 Borderline >59 Desirable Performed By: #### C P #### [address] [place] [phone] Career Education Teacher: Jag Martinez MD #### LIPR #### [address] [place] [address] Career Education Teacher: Trev Esparza MD Cholesterol in LDL [Mass/Vol] 89 mg/dL Normal 0-130 [facility] Comment on above: Result Comment: LDL Guidelines: <100 Desirable 100-129 Near to/above Desirable 130-159 Borderline >159 Undesirable Direct (measured) LDL and calculated LDL are not interchangeable tests. Performed By: #### C P #### [facility] [address] [place] [address] Dr. [place] [phone] Career Education Teacher: Jag Martinez MD #### LIPR #### [address] [place] [address] Career Education Teacher: Trev Esparza MD Cholesterol.total/Cho lesterol in HDL [Mass ratio] 3.1 {ratio} Normal <5 [facility] Comment on above: Performed By: #### C P #### [facility] [address] [place] [address] Dr. [place] [phone] Career Education Teacher: Jag Martinez MD #### LIPR #### [address] [place] [address] Career Education Teacher: Trev Esparza MD Triglyceride [Mass/Vol] 70 mg/dL Normal <150 [facility] Comment on above: Result Comment: Triglyceride Guidelines: <150 Desirable 150-199 Borderline 200-499 High >499 Very high Based on AHA Guidelines for fasting triglyceride, May 2012. Performed By: #### C P #### [facility] [address] [place] [address] [address] [place] [address] Career Education Teacher: Jag Martinez MD #### LIPR #### [address] [address] Career Education Teacher: Trev Esparza MD Comp Metabolic Profon 2022 Albumin [Mass/Vol] 3.9 g/dL Normal 3.5-5.2 [facility] Comment on above: Performed By: #### C P #### [address] [place] [address] Career Education Teacher: Jag Martinez MD #### LIPR #### [address] [address] Career Education Teacher: Trev Esparza MD Albumin/Glob Ratio 1.4 Normal 1.0-2.5 [facility] Comment on above: Performed By: #### C P #### [facility] [address] [place] [address] [address] [place] [employer], [place] [phone] Career Education Teacher: Jag Martinez MD #### LIPR #### [address] [address] Career Education Teacher: Trev Esparza MD Alkaline Phos 52 U/L Normal 40-129 [facility] Comment on above: Performed By: #### C P #### [facility] [address] [place] [address] Dr[address] [place] [employer], [place] [phone] Career Education Teacher: Jag Martinez MD #### LIPR #### [address] [place] [address] Career Education Teacher: Trev Esparza MD ALT [Catalytic activity/Vol] 23 U/L Normal 5-41 [facility] Comment on above: Performed By: #### C P #### [facility] [address] [employer] [employer], [place] [id number] Career Education Teacher: Jag Martinez MD #### LIPR #### [address] [address] Career Education Teacher: Trev Esparza MD Anion gap [Moles/Vol] 6 mmol/L Low 9-17 [facility] Comment on above: Performed By: #### C P #### [facility] [address] [employer] [employer], [place] [id number] Career Education Teacher: Jag Martinez MD #### LIPR #### [address] [address] Career Education Teacher: Trev Esparza MD AST [Catalytic activity/Vol] 23 U/L Normal <40 [facility] Comment on above: Performed By: #### C P #### [facility] [address] [employer] [employer], [place] [id number] Career Education Teacher: Jag Martinez MD #### LIPR #### [address] [address] Career Education Teacher: Trev Esparza MD Bilirubin [Mass/Vol] 0.6 mg/dL Normal 0.3-1.2 [facility] Comment on above: Performed By: #### C P #### [facility] [address] [employer] [employer], [place] [id number] Career Education Teacher: Jag Martinez MD #### LIPR #### [address] [address] Career Education Teacher: Trev Esparza MD BUN/CRE Ratio 22 High 9-20 [facility] Comment on above: Performed By: #### C P #### [facility] [address] [place], [place] [id number] Career Education Teacher: Jag Martinez MD #### LIPR #### [facility] [address] [place] [address] Career Education Teacher: Trev Esparza MD Calcium [Mass/Vol] 9.0 mg/dL Normal 8.6-10.4 [facility] Comment on above: Performed By: #### C P #### [facility] [address] [employer] [employer], [place] [id number] Career Education Teacher: Jag Martinez MD #### LIPR #### [address] [address] Career Education Teacher: Trev Esparza MD Chloride [Moles/Vol] 105 mmol/L Normal 98-107 [facility] Comment on above: Performed By: #### C P #### [facility] [address] [place] [address] Career Education Teacher: Jag Martinez MD #### LIPR #### [address] [address] Career Education Teacher: Trev Esparza MD CO2 [Moles/Vol] 27 mmol/L Normal 20-31 [facility] Comment on above: Performed By: #### C P #### [facility] [address] [place], [place] [address] Career Education Teacher: Jag Martinez MD #### LIPR #### [address] [address] Career Education Teacher: Trev Esparza MD Creatinine [Mass/Vol] 0.76 mg/dL Normal 0.70-1.20 [facility] Comment on above: Performed By: #### C P #### [facility] [address] [place] [address] [address] [place] [employer] [address] Career Education Teacher: Jag Martinez MD #### LIPR #### [address] [id number] Career Education Teacher: Trev Esparza MD GFR/1.73 sq M.predicted among non-blacks MDRD (S/P/Bld) [Vol rate/Area] mL/min/{1.73_m2} Normal >60 [facility] Comment on above: Result Comment: These results [...] secretion. Performed By: #### C P #### [address] [place] [address] Career Education Teacher: Jag Martinez MD #### LIPR #### [address] [phone] Career Education Teacher: Trev Esparza MD Glucose [Mass/Vol] 90 mg/dL Normal 70-99 [facility] Comment on above: Performed By: #### C P #### [address] [place] [phone] Career Education Teacher: Jga Martinez MD #### LIPR #### [address] [phone] Career Education Teacher: Trev Esparza MD Potassium [Moles/Vol] 4.6 mmol/L Normal 3.7-5.3 [facility] Comment on above: Performed By: #### C P #### [facility] [address] [place] [address] [address] [employer], [place] [phone] Career Education Teacher: Jag Martinez MD #### LIPR #### [address] [phone] Career Education Teacher: Trev Esparza MD Protein [Mass/Vol] 6.6 g/dL Normal 6.4-8.3 [facility] Comment on above: Performed By: #### C P #### [facility] [address] [place] [employer], [place] [phone] Career Education Teacher: Jag Martinez MD #### LIPR #### [address] [address] Career Education Teacher: Trev Esparza MD Sodium [Moles/Vol] 138 mmol/L Normal 135-144 [facility] Comment on above: Performed By: #### C P #### [facility] [address] [place] [address] [address] [employer], [place] [phone] Career Education Teacher: Jag Martinez MD #### LIPR #### [address] [address] Career Education Teacher: Trev Esparza MD Urea nitrogen [Mass/Vol] 17 mg/dL Normal 8-23 [facility] Comment on above: Performed By: #### C P #### [facility] [address] [place] [address] [place] [phone] Career Education Teacher: Jag Martinez MD #### LIPR #### [address] [address] Career Education Teacher: Trev Esparza MD Comprehensive Metabolic Pane [facility] 02-03-2023 Albumin [Mass/Vol] 3.9 g/dL 3.5 - 5.2 g/dL [facility] Albumin/Globulin [Mass ratio] 1.4 {ratio} 1.0 - 2.5 [facility] ALP [Catalytic activity/Vol] 52 U/L 40 - 129 U/L [facility] ALT [Catalytic activity/Vol] 23 U/L 5 - 41 U/L [facility] Anion gap [Moles/Vol] 6 mmol/L Low 9 - 17 mmol/L [facility] AST [Catalytic activity/Vol] 23 U/L NINF - 40 U/L [facility] Bilirubin [Mass/Vol] 0.6 mg/dL 0.3 - 1 .2 mg/dL [facility] Calcium [Mass/Vol] 9.0 mg/dL 8.6 - 10. 4 mg/dL [facility] Chloride [Moles/Vol] 105 mmol/L 98 - 10 7 mmol/L [facility] CO2 [Moles/Vol] 27 mmol/L 20 - 31 mmol/L [facility] Creatinine [Mass/Vol] 0.76 mg/dL 0.70 - 1.20 mg/dL [facility] GFR/1.73 sq M.predicted MDRD (S/P/Bld) [Vol rate/Area] - PINF [facility] Comment on above: These results are [...] [Mass/Vol] 90 mg/dL 70 - 99 mg/dL [facility] Interpretation and review of laboratory results Abnormal [facility] Potassium [Moles/Vol] 4.6 mmol/L 3.7 - 5.3 mmol/L [facility] Protein [Mass/Vol] 6.6 g/dL 6.4 - 8.3 g/dL [facility] Sodium [Moles/Vol] 138 mmol/L 135 - 144 mmol/L [facility] Urea nitrogen [Mass/Vol] 17 mg/dL 8 - 23 mg/dL [facility] Urea nitrogen/Creatinine [Mass ratio] 22 mg/mg High 9 - 20 [facility] Comprehensive Metabolic Pane aletha 09-09-2022 Albumin [Mass/Vol] 4.1 g/dL 3.5 - 5.2 g/dL [facility] Albumin/Globulin [Mass ratio] 1.6 {ratio} 1.0 - 2.5 [facility] ALP (Bld) [Catalytic activity/Vol] 52 U/L 40 - 129 U/L [facility] ALT [Catalytic activity/Vol] 29 U/L 5 - 41 U/L [facility] Anion gap [Moles/Vol] 7 mmol/L Low 9 - 17 mmol/L [facility] AST [Catalytic activity/Vol] 25 U/L NINF - 40 U/L [facility] Bilirubin [Mass/Vol] 0.6 mg/dL 0.3 - 1 .2 mg/dL [facility] Calcium [Mass/Vol] 9.5 mg/dL 8.6 - 10. 4 mg/dL [facility] Chloride [Moles/Vol] 104 mmol/L 98 - 10 7 mmol/L [facility] CO2 [Moles/Vol] 27 mmol/L 20 - 31 mmol/L [facility] Creatinine [Mass/Vol] 0.73 mg/dL 0.70 - 1.20 mg/dL [facility] GFR/1.73 sq M.predicted MDRD (S/P/Bld) [Vol rate/Area] - PINF [facility] Comment on above: Effective Jun 02, [...] [Mass/Vol] 94 mg/dL 70 - 99 mg/dL [facility] Interpretation and review of laboratory results Abnormal [facility] Potassium [Moles/Vol] 4.5 mmol/L 3.7 - 5.3 mmol/L [facility] Protein [Mass/Vol] 6.7 g/dL 6.4 - 8.3 g/dL [facility] Sodium [Moles/Vol] 138 mmol/L 135 - 144 mmol/L [facility] Urea nitrogen (BldV) [Mass/Vol] 16 mg/dL 8 - 23 mg/dL [facility] Urea nitrogen/Creatinine (Bld) [Mass ratio] 22 High 9 - 20 [facility] Lipid Panelon 09-09-2022 Cholesterol [Mass/Vol] 136 mg/dL NINF - 200 mg/dL [facility] Comment on above: Cholesterol Guidelines: <200 Desirable 200-240 Borderline >240 Undesirable Cholesterol in HDL [Mass/Vol] 48 mg/dL 40 - PINF mg/dL [facility] Comment on above: HDL Guidelines: <40 Undesirable 40-59 Borderline >59 Desirable Cholesterol in LDL [Mass/Vol] 65 mg/dL 0 - 130 mg/dL [facility] Comment on above: LDL Guidelines: <100 Desirable 100-129 Near to/above Desirable 130-159 Borderline >159 Undesirable Direct (measured) LDL and calculated LDL are not interchangeable tests. Cholesterol.total/Cho lesterol in HDL [Mass ratio] 2.8 {ratio} NINF - 5 [facility] Triglyceride [Mass/Vol] 113 mg/dL NINF - 150 mg/dL [facility] Comment on above: Triglyceride Guidelines: <150 Desirable 150-199 Borderline 200-499 High >499 Very high Based on AHA Guidelines for fasting triglyceride, May 2012. [facility] Comprehensive Metabolic Pane aletha 04-03-2022 Albumin [Mass/Vol] 4.2 g/dL 3.5 - 5.2 g/dL [facility] Albumin/Globulin [Mass ratio] 1.8 {ratio} 1 - 2.5 [facility] ALP (Bld) [Catalytic activity/Vol] 50 U/L 40 - 129 U/L [facility] ALT [Catalytic activity/Vol] 25 U/L 5 - 41 U/L [facility] Anion gap [Moles/Vol] 8 mmol/L Low 9 - 17 mmol/L [facility] AST [Catalytic activity/Vol] 24 U/L NINF - 40 U/L [facility] Bilirubin [Mass/Vol] 0.55 mg/dL 0.3 - 1 .2 mg/dL [facility] Calcium [Mass/Vol] 9.5 mg/dL 8.6 - 10. 4 mg/dL [facility] Chloride [Moles/Vol] 105 mmol/L 98 - 10 7 mmol/L [facility] CO2 [Moles/Vol] 27 mmol/L 20 - 31 mmol/L [facility] Creatinine [Mass/Vol] 0.65 mg/dL Low 0.7 - 1.2 mg/dL [facility] Free PSA/Total PSA [Mass fraction] 6.5 g/dL 6.4 - 8.3 g/dL [facility] GFR >60 60 - PI NF mL/min [facility] GFR Non- >60 60 - PINF mL/min [facility] Glucose [Mass/Vol] 101 mg/dL High 70 - 99 mg/dL [facility] Interpretation and review of laboratory results Abnormal [facility] Potassium [Moles/Vol] 4.7 mmol/L 3.7 - 5.3 mmol/L [facility] Sodium [Moles/Vol] 140 mmol/L 135 - 144 mmol/L [facility] Urea nitrogen (BldV) [Mass/Vol] 13 mg/dL 8 - 23 mg/dL [facility] Urea nitrogen/Creatinine (Bld) [Mass ratio] 20 9 - 20 [facility] Laboratory - Chemistry and C hemistry - challengeon 04-03-2022 GFR/1.73 sq M.predicted MDRD (S/P/Bld) [Vol rate/Area] [facility] Comment on above: Average GFR for 70 o r more years old: 75 mL/min/1.73sq m Chronic Kidney Disease: <60 mL/min/1.73sq m Kidney failure: <15 mL/min/1.73sq m eGFR calculated using average adult body mass. Additional eGFR calculator available at: http://www.Fullbridge.[employer]/multiple_crcl_2012.htm Stage 1: Some kidney damage normal GFR Stage 2: Mild kidney damage GFR 60-89 Stage 3: Moderate kidney damage GFR 30-59 Stage 4: Severe kidney damage GFR 15-29 Stage 5: Severe kidney damage GFR <15 ESRD - chronic treatment by dialysis or transplant Lipid, Fastingon 08-04-2022 Cholesterol [Mass/Vol] 138 mg/dL NINF - 200 mg/dL [facility] Comment on above: Cholesterol Guidelines: <200 Desirable 200-240 Borderline >240 Undesirable Cholesterol in HDL [Mass/Vol] 49 mg/dL 40 - PINF mg/dL [facility] Comment on above: HDL Guidelines: <40 Undesirable 40-59 Borderline >59 Desirable Cholesterol in LDL [Mass/Vol] 71 mg/dL 0 - 130 mg/dL [facility] Comment on above: LDL Guidelines: <100 Desirable 100-129 Near to/above Desirable 130-159 Borderline >159 Undesirable Direct (measured) LDL and calculated LDL are not interchangeable tests. Cholesterol.total/Cho lesterol in HDL [Mass ratio] 2.8 {ratio} NINF - 5 [facility] Triglyceride, Fasting 91 mg/dL NINF - 150 mg/dL [facility] Comment on above: Triglyceride Guidelines: <150 Desirable 150-199 Borderline 200-499 High >499 Very high Based on AHA Guidelines for fasting triglyceride, May 2012. [facility] Comprehensive Metabolic Pane lOrdered By: Rebekah Correa on 06-03-2021 Albumin [Mass/Vol] 4 g/dL 3.5 - 5.2 g/dL [facility] Work Phone: Albumin/Globulin [Mass ratio] 1.5 {ratio} [employer] Phone: ALP (Bld) [Catalytic activity/Vol] 56 U/L 40 - 129 U/L [employer] Phone: ALT [Catalytic activity/Vol] 21 U/L 5 - 41 U/L [employer] Phone: Anion gap [Moles/Vol] 9 mmol/L 9 - 17 mmol/L [employer] Phone: AST [Catalytic activity/Vol] 21 U/L <40 [facility] Phone: Bilirubin [Mass/Vol] 0.52 mg/dL 0.3 - 1 .2 mg/dL [employer] Phone: Calcium [Mass/Vol] 9.4 mg/dL 8.6 - 10. 4 mg/dL [facility] Phone: Chloride [Moles/Vol] 104 mmol/L 98 - 10 7 mmol/L [facility] [employer] Phone: CO2 [Moles/Vol] 26 mmol/L 20 - 31 mmol/L [facility] Phone: Creatinine [Mass/Vol] 0.79 mg/dL 0.70 - 1.20 mg/dL [employer] Phone: Free PSA/Total PSA [Mass fraction] 6.6 g/dL 6.4 - 8.3 g/dL [facility] Phone: GFR >60 >60 mL/min [employer] Phone: GFR Non- >60 >60 mL/min [facility] Phone: Glucose [Mass/Vol] 102 mg/dL High 70 - 99 mg/dL [facility] [employer] Phone: Interpretation and review of laboratory results Abnormal [facility] Phone: Potassium [Moles/Vol] 4.9 mmol/L 3.7 - 5.3 mmol/L [facility] Phone: Sodium [Moles/Vol] 139 mmol/L 135 - 144 mmol/L [facility] Phone: Urea nitrogen (BldV) [Mass/Vol] 16 mg/dL 8 - 23 mg/dL [facility] Phone: Urea nitrogen/Creatinine (Bld) [Mass ratio] 20 [facility] Phone: [facility] Phone: Laboratory - Chemistry and C hemistry - challengeOrdered By: Rebekah Correa on 06-03-2021 GFR/1.73 sq M.predicted MDRD (S/P/Bld) [Vol rate/Area] [employer] Phone: Comment on above: Average GFR for 70 o r more years old: 75 mL/min/1.73sq m Chronic Kidney Disease: <60 mL/min/1.73sq m Kidney failure: <15 mL/min/1.73sq m eGFR calculated using average adult body mass. Additional eGFR calculator available at: http://www.[employer]/multiple_crcl_2012.htm Stage 1: Some kidney damage normal GFR Stage 2: Mild kidney damage GFR 60-89 Stage 3: Moderate kidney damage GFR 30-59 Stage 4: Severe kidney damage GFR 15-29 Stage 5: Severe kidney damage GFR <15 ESRD - chronic treatment by dialysis or transplant Lipid PanelOrdered By: Rebekah Correa on 06-03-2021 Cholesterol [Mass/Vol] 140 mg/dL <200 [employer] Phone: Comment on above: Cholesterol Guidelines: <200 Desirable 200-240 Borderline >240 Undesirable Cholesterol in HDL [Mass/Vol] 50 mg/dL >40 [employer] Phone: Comment on above: HDL Guidelines: <40 Undesirable 40-59 Borderline >59 Desirable Cholesterol in LDL [Mass/Vol] 74 mg/dL 0 - 130 mg/dL [employer] Phone: Comment on above: LDL Guidelines: <100 Desirable 100-129 Near to/above Desirable 130-159 Borderline >159 Undesirable Direct (measured) LDL and calculated LDL are not interchangeable tests. Cholesterol in VLDL [Mass/Vol] NOT REPORTED 1 - 30 mg/dL [employer] Phone: Cholesterol.total/Cho lesterol in HDL [Mass ratio] 2.8 {ratio} <5 [employer] Phone: Triglyceride [Mass/Vol] 79 mg/dL <150 [employer] Phone: Comment on above: Triglyceride Guidelines: <150 Desirable 150-199 Borderline 200-499 High >499 Very high Based on AHA Guidelines for fasting triglyceride, May 2012. [employer] Phone: Comprehensive Metabolic Pane aletha 08-20-2020 Albumin [Mass/Vol] 4.1 g/dL 3.5 - 5.2 g/dL [place] Albumin/Globulin [Mass ratio] 1.7 {ratio} [place] ALP [Catalytic activity/Vol] 50 U/L 40 - 129 U/L [place] ALT [Catalytic activity/Vol] 33 U/L 5 - 41 U/L [place] Anion gap [Moles/Vol] 9 mmol/L 9 - 17 mmol/L [place] AST [Catalytic activity/Vol] 27 U/L <40 [place] Bilirubin Ql (U) 0.47 mg/dL 0.3 - 1.2 mg/dL [place] Bun/Cre Ratio 19 [place] Calcium [Mass/Vol] 9.8 mg/dL 8.6 - 10. 4 mg/dL [place] Chloride [Moles/Vol] 105 mmol/L 98 - 10 7 mmol/L [place] CO2 [Moles/Vol] 26 mmol/L 20 - 31 mmol/L [place] Creatinine [Mass/Vol] 0.77 mg/dL 0.7 - 1.2 mg/dL [place] GFR >60 >60 mL/min [place] GFR Non- >60 >60 mL/min [place] Glucose [Mass/Vol] 96 mg/dL 70 - 99 mg/dL [place] Potassium [Moles/Vol] 5.0 mmol/L 3.7 - 5.3 mmol/L [place] Protein [Mass/Vol] 6.5 g/dL 6.4 - 8.3 g/dL [place] Sodium [Moles/Vol] 140 mmol/L 135 - 144 mmol/L [place] Urea nitrogen [Mass/Vol] 15 mg/dL 8 - 23 mg/dL [place] Hemoglobin A1Con 08-20-2020 Glucose [Mass/Vol] 117 mg/dL [place] Comment on above: The ADA and AACC rec ommend providing the estimated average glucose result to permit better patient understanding of their HBA1c result. HbA1c (Bld) [Mass fraction] 5.7 % 4 - 6 % [place] Lipid Panelon 08-20-2020 Cholesterol [Mass/Vol] 138 mg/dL <200 [place] Comment on above: Cholesterol Guidelines: <200 Desirable 200-240 Borderline >240 Undesirable Cholesterol in HDL [Mass/Vol] 55 mg/dL >40 [place] Comment on above: HDL Guidelines: <40 Undesirable 40-59 Borderline >59 Desirable Cholesterol in LDL [Mass/Vol] 67 mg/dL 0 - 130 mg/dL [place] Comment on above: LDL Guidelines: <100 Desirable 100-129 Near to/above Desirable 130-159 Borderline >159 Undesirable Direct (measured) LDL and calculated LDL are not interchangeable tests. Cholesterol in VLDL [Mass/Vol] NOT REPORTED 1 - 30 mg/dL [place] Cholesterol.total/Cho lesterol in HDL [Mass ratio] 2.5 {ratio} <5 [place] Triglyceride [Mass/Vol] 78 mg/dL <150 [place] Comment on above: Triglyceride Guidelines: <150 Desirable 150-199 Borderline 200-499 High >499 Very high Based on AHA Guidelines for fasting triglyceride, May 2012. Metabolic Panelon 08-20-2020 GFR/1.73 sq M predicted among non-blacks MDRD (S/P/Bld) [Vol rate/Area] [place] Comment on above: Stage 1: Some [...] body mass. Additional eGFR calculator available at: http://www.[employer]/multiple_crcl_2012.htm Comprehensive Metabolic Pane lOrdered By: Rebekah Correa on 08-15-2019 Albumin [Mass/Vol] 4.2 g/dL 3.5 - 5.2 g/dL [employer] Work Phone: Albumin/Globulin [Mass ratio] 1.7 {ratio} [facility] Phone: ALP [Catalytic activity/Vol] 49 U/L 40 - 129 U/L [facility] Phone: ALT [Catalytic activity/Vol] 33 U/L 5 - 41 U/L [facility] Phone: Anion gap [Moles/Vol] 11 mmol/L 9 - 17 mmol/L [facility] Phone: AST [Catalytic activity/Vol] 23 U/L <40 [facility] Phone: Bilirubin [Mass/Vol] 0.37 mg/dL 0.3 - 1 .2 mg/dL [facility] Phone: Bun/Cre Ratio 27 High [facility] [employer] Work Phone: Calcium [Mass/Vol] 9.7 mg/dL 8.6 - 10. 4 mg/dL [facility] Phone: Chloride [Moles/Vol] 97 mmol/L Low 98 - 10 7 mmol/L [facility] Phone: CO2 [Moles/Vol] 26 mmol/L 20 - 31 mmol/L [facility] Phone: Creatinine [Mass/Vol] 0.78 mg/dL 0.7 - 1.2 mg/dL [facility] Phone: GFR >60 >60 mL/min [employer] Phone: GFR Comment [facility] Phone: Comment on above: Average GFR for 70 o r more years old: 75 mL/min/1.73sq m Chronic Kidney Disease: <60 mL/min/1.73sq m Kidney failure: <15 mL/min/1.73sq m eGFR calculated using average adult body mass. Additional eGFR calculator available at: http://www.[employer]/multiple_crcl_2012.htm GFR Non- >60 >60 mL/min [employer] Phone: GFR Staging [facility] Phone: Comment on above: Stage 1: Some kidney damage normal GFR Stage 2: Mild kidney damage GFR 60-89 Stage 3: Moderate kidney damage GFR 30-59 Stage 4: Severe kidney damage GFR 15-29 Stage 5: Severe kidney damage GFR <15 ESRD - chronic treatment by dialysis or transplant Glucose [Mass/Vol] 85 mg/dL 70 - 99 mg/dL [employer] Phone: Interpretation and review of laboratory results Abnormal [facility] Phone: Potassium [Moles/Vol] 4.4 mmol/L 3.7 - 5.3 mmol/L [facility] Phone: Protein [Mass/Vol] 6.7 g/dL 6.4 - 8.3 g/dL [facility] Phone: Sodium [Moles/Vol] 134 mmol/L Low 135 - 144 mmol/L [facility] Phone: Urea nitrogen [Mass/Vol] 21 mg/dL 8 - 23 mg/dL [employer] Phone: Lipid PanelOrdered By: Rebekah Correa on 08-15-2019 Cholesterol [Mass/Vol] 146 mg/dL <200 [employer] Phone: Comment on above: Cholesterol Guidelines: <200 Desirable 200-240 Borderline >240 Undesirable Cholesterol in HDL [Mass/Vol] 67 mg/dL >40 [employer] Phone: Comment on above: HDL Guidelines: <40 Undesirable 40-59 Borderline >59 Desirable Cholesterol in LDL [Mass/Vol] 70 mg/dL 0 - 130 mg/dL [employer] Phone: Comment on above: LDL Guidelines: <100 Desirable 100-129 Near to/above Desirable 130-159 Borderline >159 Undesirable Direct (measured) LDL and calculated LDL are not interchangeable tests. Cholesterol.total/Cho lesterol in HDL [Mass ratio] 2.2 {ratio} <5 [facility] [employer] Phone: Triglyceride [Mass/Vol] 45 mg/dL <150 [facility] [employer] Phone: Comment on above: Triglyceride Guidelines: <150 Desirable 150-199 Borderline 200-499 High >499 Very high Based on AHA Guidelines for fasting triglyceride, May 2012. VLDL NOT REPORTED 1 - 30 mg/dL [facility] Work Phone: CBC Auto Differentialon 08-0 Basophils (Bld) [#/Vol] 10*3/uL [place] Basophils/100 WBC (Bld) 0 % 0 - 2 % [place] Differential Type NOT REPORTED [place] Eosinophils (Bld) [#/Vol] 0.20 10*3/uL [place] Eosinophils/100 WBC (Bld) 4 % 1 - 4 % [place] Erythrocyte distribution width (RBC) [Ratio] 12.6 % 11.8 - 14.4 % [place] Hematocrit (Bld) [Volume fraction] 44.7 % 40.7 - 50.3 % [place] Hemoglobin (Bld) [Mass/Vol] 14.4 g/dL 13 - 17 g/dL [place] Immature granulocytes (Bld) [#/Vol] 10*3/uL [place] Immature granulocytes (Bld) [#/Vol] 0 % 0 [place] Lymphocytes (Bld) [#/Vol] 2.13 10*3/uL [place] Lymphocytes/100 WBC (Bld) 38 % 24 - 43 % [place] MCH (RBC) [Entitic mass] 32.1 pg 25.2 - 33.5 pg [place] MCHC (RBC) [Mass/Vol] 32.2 g/dL 28.4 - 34.8 g/dL [place] MCV (RBC) [Entitic vol] 99.8 fL 82.6 - 102.9 fL [place] Monocytes (Bld) [#/Vol] 0.43 10*3/uL [place] Monocytes/100 WBC (Bld) 8 % 3 - 12 % [place] Platelet mean volume (Bld) [Entitic vol] 10.7 fL 8.1 - 13.5 fL [place] Platelets (Bld) [#/Vol] 199 10*3/uL [place] Platelets (Bld) [#/Vol] NOT REPORTED [place] RBC (Bld) [#/Vol] 4.48 10*6/uL 4.21 - 5.7 7 m/uL [place] RBC morphology finding Nom (Bld) NOT REPORTED [place] Segmented neutrophils/100 WBC (Bld) 50 % 36 - 65 % [place] Segs Absolute 2.83 [place] WBC (Bld) [#/Vol] 5.6 10*3/uL [place] WBC (Bld) [#/Vol] 0.0 10*3/uL 0.0 per 10 0 WBC [place] WBC Morphology NOT REPORTED [place] Hemoglobin A1Con 04-08-2019 Glucose [Mass/Vol] 114 mg/dL [place] Comment on above: The ADA and AACC rec ommend providing the estimated average glucose result to permit better patient understanding of their HBA1c result. HbA1c (Bld) [Mass fraction] 5.6 % 4.8 - 5.9 % [place] Encounters Encounter Date Encounter Type Care Provider Facility Start: 11-30-2023 End: 12-01-2023 ambulatory REBEKAH Mitul [facility] [facility] Start: 10-28-2023 End: 10-29-2023 ambulatory Jaden Werner MD Facility:[facility] Start: 10-14-2023 End: 10-15-2023 ambulatory Jaden Werner MD Facility:[facility] Start: 08-20-2023 End: 08-23-2023 ambulatory FREDI MOE [facility] Start: 08-20-2023 End: 08-22-2023 Subsequent hospital visit by physician Fredi Moe MD Work Phone: [facility] Comment on above: Arrived Start: 08-19-2023 End: 08-22-2023 ambulatory REBEKAH CORREA [facility] Start: 06-24-2023 End: 06-27-2023 ambulatory REBEKAH Cunningham [facility] Start: 06-15-2023 End: 06-16-2023 ambulatory REBEKAH CORREA [facility] Start: 02-03-2023 End: 02-04-2023 ambulatory REBEKAH CORREA [facility] Start: 02-03-2023 End: 02-03-2023 Subsequent hospital visit by physician Rebekah Correa DO Work Phone: [facility] Start: 09-09-2022 End: 09-09-2022 Subsequent hospital visit by physician Rebekah Correa DO Work Phone: [facility] Start: 06-18-2022 End: 06-19-2022 ambulatory [facility] Facility:[facility]1 Start: 04-03-2022 End: 04-03-2022 Subsequent hospital visit by physician Rebekah Correa DO Work Phone: [facility] Start: 10-10-2021 End: 10-11-2021 ambulatory [facility] Facility:[facility]1 Start: 07-09-2021 End: 07-09-2021 Subsequent [facility] Schedule [facility] Covid Screening Comment on above: Arrived Start: 06-03-2021 End: 06-03-2021 Subsequent hospital visit by physician Rebekah Correa DO Work Phone: [facility] Start: 08-20-2020 End: 08-20-2020 Subsequent hospital visit by physician Rebekah [facility]ALL[facility] Start: 08-15-2019 End: 08-15-2019 Subsequent hospital visit by physician Rebekah Correa DO Work Phone: [facility] Start: 04-08-2019 End: 04-08-2019 Subsequent [facility] visit [facility] Procedures Date Procedure Procedure Detail Performing Clinician Start: 08-20-2023 Myocardial spect mul tiple studies Fredi Moe MD Work Phone: Start: 02-03-2023 Comprehensive metabo lic panel Rebekah Correa DO Work Phone: Start: 09-09-2022 Comprehensive metabo lic panel Rebekah Correa DO Work Phone: Start: 09-09-2022 Lipid panel Rebekah Tapia sse DO Work Phone: Start: 04-03-2022 Comprehensive metabo lic panel Rebekah Correa DO Work Phone: Start: 04-03-2022 Lipid panel Rebekah harper DO Work Phone: Start: 06-03-2021 Comprehensive metabo lic panel Rebekah Correa DO Work Phone: Start: 06-03-2021 Lipid panel Rebekah harper DO Work Phone: Start: 08-20-2020 [object Object] Rebekah lange Comment on above: The Nikhil ECLIA as say is used. Results obtained with different assay methods cannot be used interchangeably. Start: 08-20-2020 Comprehensive metabo lic panel Rebekah Correa Work Phone: Start: 08-20-2020 Hemoglobin glycosylated a1c Rebekah Correa Work Phone: Start: 08-20-2020 Lipid panel Rebekah harper Work Phone: Start: 08-20-2020 PSA screening Rebeakh lange Work Phone: Start: 08-15-2019 Comprehensive metabo lic panel Rebekah Correa DO Work Phone: Start: 08-15-2019 Lipid panel Rebekah harper DO Work Phone: Start: 04-08-2019 Blood count complete auto&auto difrntl wbc Rebekah Correa Work Phone: Start: 04-08-2019 Hemoglobin glycosylated a1c Rebekah Correa Work Phone: Plan of Treatment Date Care Activity Detail Author Start: 06-15-2024 Lipid panel Lipids [facility] Start: 09-24-2023 End: 09-24-2023 Patient encounter procedure 09/24/2023 10:00 AM EST Office Visit [facility] [address] [place] [address] [address] [place], [place] [id number] Nhi Bartholomew MD [address] [facility] [address] [place], [place] [id number] Appt Reason: New Patient Request Appointment [facility] Comment on above: Appt Reason: New Pat ient Request Appointment Start: 09-09-2023 Lipid panel Lipids [facility] Start: 05-01-2023 COVID-19 Vaccine ( season) COVID-19 Vaccine ( season) [facility] Start: 04-03-2023 Lipid panel Lipids [facility] Start: 03-31-2023 Influenza vaccination [facility] Start: 06-03-2022 Lipid panel Lipid screen [facility] Start: 05-01-2022 Influenza vaccination Flu vaccine (# 1) [facility] Start: 03-31-2022 Influenza vaccination Flu vaccine (# 1) [facility] Start: 12-26-2021 Lipid panel Lipid screen [facility] Work Phone: Start: 08-20-2021 Lipid panel Lipid screen [facility] [place], [place] Start: 05-01-2021 Influenza vaccination Flu vaccine (# 1) [facility] Start: 04-12-2021 COVID-19 Vaccine (3 - Booster for Pfizer series) COVID-19 Vaccine (3 - Booster for Pfizer series) [facility] Start: 03-12-2021 COVID-19 Vaccine (3 - Booster for Pfizer series) COVID-19 Vaccine (3 - Booster for Pfizer series) [facility] Start: 12-08-2020 COVID-19 Vaccine (3 - Booster for Pfizer series) COVID-19 Vaccine (3 - Booster for Pfizer series) [facility] Start: 05-01-2020 Influenza vaccination Flu vaccine (# 1) [facility] [place] Start: 04-04-2020 Lipid screen Lipid screen [facility] [employer] Phone: Start: 05-01-2019 Influenza vaccination Flu vaccine (# 1) [place] Start: 02-20-2019 Annual Wellness Visi t (AWV) Annual Wellness Visit (AWV) [facility] Start: 2003 Pneumococcal 65+ yea rs Vaccine (1 - PCV) Pneumococcal 65+ years Vaccine (1 - PCV) [facility] Start: 2003 Pneumococcal 65+ yea rs Vaccine (1 of 1 - PPSV23) Pneumococcal 65+ years Vaccine (1 of 1 - PPSV23) [facility] Start: 2003 Pneumococcal 65+ yea rs Vaccine (1 of 2 - PCV13) Pneumococcal 65+ years Vaccine (1 of 2 - PCV13) [place] Start: 2001 Annual Wellness Visi t (AWV) Annual Wellness Visit (AWV) [place] Start: 1998 Respiratory Syncytia l Virus (RSV) or age 60 yrs+ (1 - 1-dose 60+ series) Respiratory Syncytial Virus (RSV) or age 60 yrs+ (1 - 1-dose 60+ series) [facility] [employer] Start: 1988 Shingles Vaccine (1 of 2) Shingles Vaccine (1 of 2) [facility] Start: 1957 DTaP/Tdap/Td vaccine (1 - Tdap) DTaP/Tdap/Td vaccine (1 - Tdap) [facility] Start: 1950 COVID-19 Vaccine (1) COVID-19 Vaccin e (1) [facility] [employer] Phone: Start: 1950 Depression Screen Depression Screen [facility] [employer] Start: 1949 DTaP/Tdap/Td vaccine (1 - Tdap) DTaP/Tdap/Td vaccine (1 - Tdap) [facility] [employer] Phone: Start: 1938 Annual Wellness Visi t (AWV) Annual Wellness Visit (AWV) [facility] [employer] End: 07-09-2021 COVID-19 [employer] Phone: Comment on above: Once for 1 Occurrenc es starting 07/09/2021 until 07/09/2021 End: 02-03-2023 Lipid panel [facility] [employer] Phone: Comment on above: Once for 1 Occurrenc es starting 02/03/2023 until 02/03/2023 Payers Date Payer Category Payer Private Health Insurance 2023 Private Health Insurance CLI [id number] 2015 Private Health Insurance HUMANA HUMANA MEDICARE SUPP xxxxxxxxx 2015-Present [address] [address] [place] [address] xxxxxxxxx [id number] 2014 Medicare MEDICARE MEDICAR E PART A AND B xxxxxxxxxxx 2014-Present [phone] [address] [address] [place] [address] xxxxxxxxxxx [id number] 2003 Medicare 1959 Medicare [id number] 1959 Private Health Insurance [id number] 1938 Unknown [id number] .593 1938 Unknown [id number] [id number] .593 1938 Unknown [id number] 2.16.840.1.658019.3.579.2 .173 1938 Unknown [id number] 2.16.840.1.168071.3.579.2 .173 1938 Unknown [id number] 2.16.840.1.433606.3.579.2 .173 1938 Unknown [id number] 2.16.840.1.535940.3.579.2 .173 1938 Unknown [id number] 2.16.840.1.274074.3.579.2 .173 1938 Unknown [id number] 2.16.840.1.311245.3.579.2 .173 1938 Unknown [id number] 2.16.840.1.138047.3.579.2 .173 1938 Unknown [id number] 2.16.840.1.075050.3.579.2 .173 1938 Unknown [id number] 2.16.840.1.447847.3.579.2 .173 1938 Unknown [id number] 2.16.840.1.917374.3.579.2 .173 1938 Unknown [id number] 2.16.840.1.016087.3.579.2 .196 1938 Unknown [id number] [id number] .196 Social History Date Type Detail Facility Start: 11-28-2013 End: 07-14-2023 Tobacco smoking status NHIS Former smoker [place], [place] History of tobacco use Pipe Smoker [place] Start: 11-28-2013 End: 07-14-2023 Alcohol intake Yes [place] Start: 11-28-2013 End: 07-14-2023 Tobacco Comment quit 30 years ago [place] Start: 11-28-2013 Alcohol Comment occasional [facility] [place] Start: 1940 Sex Assigned At Not on file M [place] Start: 11-28-2013 End: 07-14-2023 Tobacco use and exposure Never used [place] Start: 11-28-2013 End: 07-14-2023 Alcohol intake Current drinker of alcohol (finding) [employer] Phone: History of tobacco use Current smoker [employer] Phone: Start: 07-14-2023 History of Social function [facility] [employer] Procedure Code Equipment Code Equipment [...] authenticated by: FREDI POZO Date: 2022-06-18 21:05 [facility] Clinical Note 06-18-2022 Note Date & [...] authenticated by: FREDI POZO Date: 2022-06-18 21:05 [facility] Clinical Note 10-10-2021 Note Date & [...] authenticated by: JAG CANTOR Date: 2021-10-10 11:12 [facility] Advance Directives No Advanced Directives Records FoundDocuments on File Type Date Recorded 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 Advance Directives and Living Will Power of Elastic Attacher Coverstitch Latest Code Status on File Code Status Date Activated Date Inactivated Comments Full Code 12/14/2013 9:05 AM 12/14/2013 2:50 PM Documents on File Type Date Recorded 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 anation ACP-Advance Directive ACP-Power of Elastic Attacher Coverstitch Documents on File Type Date Recorded 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 anation ACP-Advance Directive 10/02/2022 11:34 AM Latest Code Status on File Code Status Date Activated Date Inactivated Comments Full Code 12/14/2013 9:05 AM 12/14/2013 2:50 PM Documents on File Type Date Recorded 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 anation ACP-Advance Directive 10/02/2022 11:34 AM Latest Code Status on File Code Status Date Activated Date Inactivated Comments Full Code 12/14/2013 9:05 AM 12/14/2013 2:50 PM Summary Purpose Family History No Family History Records FoundNo Family History Records FoundNo Family History Records Found Additional Source Comments Care Teams (unrecognized sec tion and content) 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 Relationship Specialty Start Date End Date Rebekah Correa, [address] [phone] PCP - General 07/07/12 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 Relationship Specialty Start Date End Date Rebekah Correa, [address] [phone] PCP - General 07/07/12 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 Relationship Specialty Start Date End Date Rebekah Correa, [address] [phone] PCP - General 07/07/12 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 Relationship Specialty Start Date End Date Rebekah Correa DO [address] [place] [id number] PCP - General 07/07/12 (unrecognized sect ion and content) No Status Records FoundNo Status Records FoundNo Status Records Found INFORMATION SOURCE (unrecogn ized section and content) DATE CREATED AUTHOR 06/23/2022 [facility] DATE CREATED AUTHOR AUTHOR'S ORGANIZ ATION 12/01/2023 [facility] DATE CREATED AUTHOR AUTHOR'S ORGANIZ ATION 01/23/2024 [facility] Reason for Visit (unrecogniz ed section and content) Specialty Diagnoses / Procedures Referred By Contac t Referred To Contact Diagnoses SOB (shortness of breath) Leg swelling R06.02 (ICD-10-CM) - SOB (shortness of breath) Procedures Nuclear stress test with myocardial perfusion CHG MYOCARDIAL SPECT MULTIPLE STUDIES 24796 - CHG MYOCARDIAL SPECT MULTIPLE STUDIES Fredi Moe MD [address] [place] [address] Referral ID Status Reason Start Date Expiration Date Visits Re quested Visits Authorized [id number] Closed 07/14/2023 07/13/2024 3 3 FOR RECORDS [...] BE BASED ON THE PRIMARY CLINICAL RECORDS. [facility] [employer] [facility]. provides no warranty or guarantee of the accuracy or completeness of information in this document.
== END 2024-01-27 11:48 | disposition home or self-care (01) ==
LOC: EC 11:48
PROVIDERS: PCP Internal Medicine Nephrology; Visit Provider Podiatrist Foot & Ankle Surgery
DX: M79.671 Pain in right foot (principal); Z96.661 Presence of right artificial ankle joint; S92.354A Nondisplaced fracture of fifth metatarsal bone, right foot, initial encounter for closed fracture; Z98.890 Other specified postprocedural states
CPT/HCPCS: 73610; 73630

== ENCOUNTER 2024-02-16 10:34 | Outpatient (OUT) | payer MEDICARE, SELFPAY ==
--- NOTE | 2024-02-16 | XR_ITS ---
The [address] [address] Patient Name: JUAN ZELAYA MRN: [id number] date: 1940 Sex: M Assigned Patient Location: Current Patient Location: Accession/Order Number: [id number] Exam Date: 02/16/2024 10:36 Report Date: 02/17/2024 11:49 At the request of: MICHELLE MNAN Procedure: XR foot RT min 3V PROCEDURE: XR foot RT min 3V, XR ankle RT min 3V HISTORY: RIGHT FOOT PAIN , right ankle pain; 5th metatarsal pain COMPARISON: XR right ankle and foot 01/27/2024 FINDINGS: BONES:Medial displacement of the head of the 5th metatarsal due to fracture of the neck, with evidence of callus formation along the margins. Prior resection of the head of the 5th proximal phalanx. Joint space narrowing and large periarticular degenerative osteophytes involving the first metatarsophalangeal joint. 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 Single screw repair of medial malleolus.. SOFT TISSUES:Mild soft tissue swelling surrounding the foot and ankle. EFFUSION:None visible. OTHER: Negative. XR/XR foot RT min 3V IMPRESSION: 1. Ongoing bone healing of displaced 5th metatarsal fracture. No significant change in alignment compared to prior study 2. 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 3. Stable surgical changes without evidence of hardware failure or change in alignment. Electronically authenticated by: MUNA POZO Date: 02/17/2024 11:49
--- NOTE | 2024-02-16 | XR_ITS ---
The [address] [address] Patient Name: JUAN ZELAYA MRN: [id number] date: 1940 Sex: M Assigned Patient Location: Current Patient Location: Accession/Order Number: [id number] Exam Date: 02/16/2024 10:36 Report Date: 02/17/2024 11:49 At the request of: MICHELLE MANN Procedure: XR ankle RT min 3V PROCEDURE: XR foot RT min 3V, XR ankle RT min 3V HISTORY: RIGHT FOOT PAIN , right ankle pain; 5th metatarsal pain COMPARISON: XR right ankle and foot 01/27/2024 FINDINGS: BONES:Medial displacement of the head of the 5th metatarsal due to fracture of the neck, with evidence of callus formation along the margins. Prior resection of the head of the 5th proximal phalanx. Joint space narrowing and large periarticular degenerative osteophytes involving the first metatarsophalangeal joint. 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 Single screw repair of medial malleolus.. SOFT TISSUES:Mild soft tissue swelling surrounding the foot and ankle. EFFUSION:None visible. OTHER: Negative. XR/XR ankle RT min 3V IMPRESSION: 1. Ongoing bone healing of displaced 5th metatarsal fracture. No significant change in alignment compared to prior study 2. 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 3. Stable surgical changes without evidence of hardware failure or change in alignment. Electronically authenticated by: MUNA POZO Date: 02/17/2024 11:49
== END 2024-02-16 10:35 | disposition home or self-care (01) ==
LOC: EC 10:34
PROVIDERS: PCP Internal Medicine Nephrology; Visit Provider Physician Assistant
DX: M25.571 Pain in right ankle and joints of right foot (principal); S92.351D Displaced fracture of fifth metatarsal bone, right foot, subsequent encounter for fracture with routine healing; M19.071 Primary osteoarthritis, right ankle and foot; Z98.890 Other specified postprocedural states
CPT/HCPCS: 73610; 73630

== ENCOUNTER 2024-03-09 10:53 | Outpatient (OUT) | payer MEDICARE, SELFPAY ==
--- NOTE | 2024-03-09 | XR_ITS ---
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 Anatomic alignment is demonstrated. Stable healing fracture distal diaphysis of the fifth metatarsal with callus formation. Remote resection head of the fifth proximal phalanx. Severe degenerative change first metatarsal-phalangeal joint with joint space narrowing and marginal osteophyte formation and SOFT TISSUES:Negative. No visible soft tissue swelling. EFFUSION:None visible. OTHER: Negative. XR/XR foot RT min 3V IMPRESSION: Stable healing fifth metatarsal fracture Stable postsurgical and degenerative changes Electronically authenticated by: JAG CANTOR Date: 03/09/2024 11:59
== END 2024-03-09 10:54 | disposition home or self-care (01) ==
LOC: EC 10:53
PROVIDERS: PCP Internal Medicine Nephrology; Visit Provider Podiatrist Foot & Ankle Surgery
DX: M79.671 Pain in right foot (principal); S92.351A Displaced fracture of fifth metatarsal bone, right foot, initial encounter for closed fracture
CPT/HCPCS: 73630

== ENCOUNTER 2024-07-06 10:03 | Outpatient (OUT) | payer MEDICARE, SELFPAY ==
--- NOTE | 2024-07-06 | XR_ITS ---
[address] [address] Patient Name: JUAN ZELAYA MRN: [id number] date: 1940 Sex: M Assigned Patient Location: [facility] Current Patient Location: Accession/Order Number: [id number] Exam Date: 07/06/2024 10:05 Report Date: 07/08/2024 06:49 At the request of: LELAND RICHARDSON Procedure: XR foot RT min 3V PROCEDURE: XR foot RT min 3V, XR ankle RT min 3V HISTORY: RIGHT FOOT 1 YEAR F/U FOR HARDWARE CHECK COMPARISON: XR foot right 03/09/2024, XR ankle right 02/16/2024 FINDINGS: BONES:Marked degenerative changes the first tarsal-metatarsal joint. Slight offset, but prominent callus formation at site of distal 5th metatarsal fracture. 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 Resection of head of 5th proximal phalanx. Screw within medial malleolus from prior repair. SOFT TISSUES:No visible soft tissue swelling. EFFUSION:None visible. OTHER: Negative. XR/XR foot RT min 3V IMPRESSION: 1. Stable surgical changes without evidence of hardware failure or change in alignment. 2. Ongoing bone healing of remote 5th metatarsal fracture. 3. Grossly stable marked degenerative changes of the first metatarsophalangeal joint. Electronically authenticated by: MUNA POZO Date: 07/08/2024 06:49
--- NOTE | 2024-07-06 | XR_ITS ---
The [address] [address] Patient Name: JUAN ZELAYA MRN: [id number] date: 1940 Sex: M Assigned Patient Location: [facility] Current Patient Location: Accession/Order Number: [id number] Exam Date: 07/06/2024 10:05 Report Date: 07/08/2024 06:49 At the request of: LELAND RICHARDSON Procedure: XR ankle RT min 3V PROCEDURE: XR foot RT min 3V, XR ankle RT min 3V HISTORY: RIGHT FOOT 1 YEAR F/U FOR HARDWARE CHECK COMPARISON: XR foot right 03/09/2024, XR ankle right 02/16/2024 FINDINGS: BONES:Marked degenerative changes the first tarsal-metatarsal joint. Slight offset, but prominent callus formation at site of distal 5th metatarsal fracture. 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 Resection of head of 5th proximal phalanx. Screw within medial malleolus from prior repair. SOFT TISSUES:No visible soft tissue swelling. EFFUSION:None visible. OTHER: Negative. XR/XR ankle RT min 3V IMPRESSION: 1. Stable surgical changes without evidence of hardware failure or change in alignment. 2. Ongoing bone healing of remote 5th metatarsal fracture. 3. Grossly stable marked degenerative changes of the first metatarsophalangeal joint. Electronically authenticated by: MUNA POZO Date: 07/08/2024 06:49
== END 2024-07-06 10:04 | disposition home or self-care (01) ==
LOC: RAD 10:03
PROVIDERS: PCP Internal Medicine Nephrology; Visit Provider Podiatrist Foot & Ankle Surgery
DX: M25.571 Pain in right ankle and joints of right foot (principal); M79.671 Pain in right foot; Z98.890 Other specified postprocedural states; S92.354D Nondisplaced fracture of fifth metatarsal bone, right foot, subsequent encounter for fracture with routine healing
CPT/HCPCS: 73610; 73630